=== PATIENT | male | born 1940 | race Hispanic/Latino ===

== ENCOUNTER 2019-08-14 22:21 | Observation (INO) | payer SELFPAY ==
[2019-08-15 00:31] LABS: Hemoglobin 14.2 gm/dl (11.8-15.2); Mean Corpuscular HGB Conc 35 % (32-34); Mean Corpuscular Volume 83 fl (84-94); Platelet Count 204 K/mm3 (140-440); Red Blood Count 4.96 M/mm3 (3.65-5.03)
[2019-08-15 00:56] LABS: BUN/Creatinine Ratio 17; Blood Urea Nitrogen 15 mg/dL (9-20); Calcium 9.1 mg/dL (8.4-10.2); Hemolysis Index 4
--- NOTE | 2019-08-15 04:05 | Emergency Department Report ---
HPI - General Chief Complaint: Extremity Problem,Nontraumatic - HPI HPI: Room 2 The patient is a 71-year-old male presenting with a chief complaint of bilateral foot pain. The patient states she's had pain in bilateral feet for approximately 3 years. The patient states his feet are still hard and swollen which makes him believe they are infected. The patient is a poor historian. Patient states the right foot hurts worse than left. There is no recent trauma. Location: [See above] Duration: [See above] Quality: [See above] Severity: [See above] Timing: [See above] Context: [See above] Modifying factors: [See above] Associated signs and symptoms: [see above] ED Past Medical Hx - Past Medical History Previous Medical History?: Yes Hx Heart Attack/AMI: Yes Hx Diabetes: Yes - Family History Family history: no significant - Social History Smoking Status: Never Smoker Substance Use Type: None ED Review of Systems ROS: Stated complaint: DIABETES FEET SWELLING Other details as noted in HPI Constitutional: denies: fever Physical Exam - Physical Exam Physical Exam: GENERAL: The patient is well-developed well-nourished male lying on stretcher not appearing to be in acute distress. Poor hygiene. Malodorous HEENT: Normocephalic. Atraumatic. Extraocular motions are intact. Patient has moist mucous membranes. NECK: Supple. Trachea midline CHEST/LUNGS: There is no respiratory distress noted. HEART/CARDIOVASCULAR: Regular. There is no tachycardia. There is no gallop rub or murmur. ABDOMEN:There is no abdominal distention. SKIN: Bilateral lower extremities are scabbed over and erythematous. Both legs are extremely malodorous. Ulceration to the left ankle and heel. There were several bills of Money embedded into the skin behind the right calf. This was peeled off and given to the patient NEURO: The patient is awake, alert, and oriented. The patient is cooperative. The patient has normal speech MUSCULOSKELETAL: There is no evidence of acute injury. ED Medical Decision Making - Lab Data Result diagrams: 08/14/19 23:48 08/14/19 23:48 Laboratory Tests 08/14/19 08/14/19 08/14/19 22:47 23:48 23:48 WBC 10.8 RBC 4.96 Hgb 14.2 Hct 41.0 MCV 83 L MCH 29 MCHC 35 H RDW 14.0 Plt Count 204 Sodium 142 Potassium 4.0 Chloride 102.0 Carbon Dioxide 27 Anion Gap 17 BUN 15 Creatinine 0.9 Estimated GFR > 60 BUN/Creatinine Ratio 17 Glucose 203 H POC Glucose 186 H Calcium 9.1 - Differential Diagnosis diabetic foot infection Critical care attestation.: If time is entered above; I have spent that time in minutes in the direct care of this critically ill patient, excluding procedure time. ED Disposition Clinical Impression: Diabetic infection of left foot, Diabetic infection of right foot Disposition: OP ADMIT IP TO THIS HOSP Is pt being admited?: Yes Does the pt Need Aspirin: No Condition: Fair Instructions: Diabetes Mellitus Type 2 in Adults (ED) Time of Disposition: 04:17 (hospitalist paged (Dr Haynes))
[2019-08-15] MEDS ORDERED: VANCOMYCIN/NS 1 GM/250 ML 1 GM/250 ML BAG IV ONE ×3 (04:06→09:00)
[2019-08-15] MEDS ORDERED: CEFEPIME/NS 1 GM/100 ML 1 GM/100 ML BAG IV ONE (04:06)
[2019-08-15] MEDS ORDERED: cloNIDine 0.2 MG TAB PO ONE (04:43)
[2019-08-15] MEDS ORDERED: diphenhydrAMINE 25 MG CAP PO ONE ×2 (04:43→04:45)
[2019-08-15] MEDS ORDERED: FAMOTIDINE 20 MG/2 ML INJ IV ONE ×2 (04:43→04:45)
--- NOTE | 2019-08-15 06:10 | XRay Report ---
EXAMINATION: Bilateral tibia/fibula, 2 views, 08/15/2019 CLINICAL INFORMATION: Diabetic foot infection COMPARISON: None. FINDINGS: There is no evidence of acute bony fracture of either lower extremity. There is diffuse justyna rly symmetric soft tissue swelling throughout both lower extremities. Right lower extremity there is no evidence of acute bony fracture IMPRESSION: Diffuse soft tissue swelling of both lower extremities. Signer Name: Isidra Amador MD Signed: 08/15/2019 6:06 AM Workstation Name: [email or web address]
--- NOTE | 2019-08-15 06:12 | XRay Report ---
EXAMINATION: Bilateral foot radiograph, 2 views, 08/15/2019 CLINICAL INFORMATION: Diabetic foot infection COMPARISON: None. FINDINGS: Evaluation is limited secondary to patient positioning. There is diffuse soft tissue swelling of both feet. Bony degenerative changes of both feet are noted. Bony structures appear subjectively deminera lized. No definite acute fracture or other acute bony abnormality is clearly visualized. Signer Name: Isidra Amador MD Signed: 08/15/2019 6:08 AM Workstation Name: [id number]
--- NOTE | 2019-08-15 07:54 | History and Physical Report ---
History of Present Illness Date of examination: 08/15/19 Date of admission: 08/15/19 Chief complaint: Iker lower extremity swelling, chronic wounds History of present illness: 71-year-old obese male patient with significant past medical history of diabetes mellitus presented to the emergency room. With bilateral lower extremity pain and swelling and foul-smelling discharge. Patient complains of right foot pain, no history suggestive of trauma Patient is noncooperative, refuses to give history and poor historian Initial workup with x-ray bilateral tibia-fibula initial workup with x-ray bilateral tibia-fibula; diffuse soft tissue swelling of both lower extremities no fracture The bilateral feet diffuse soft tissue swelling of both feet with degenerative bone changes and demineralization of bone structures No fracture or acute abnormality Past History Past Medical History: diabetes, hypertension Past Surgical History: No surgical history Social history: denies: smoking, alcohol abuse, prescription drug abuse Family history: hypertension Medications and Allergies Allergies Allergy/AdvReac Type Severity Reaction Status Date / Time No Known Allergies Allergy Verified 08/14/19 22:32 Home Medications Medication Instructions Recorded Confirmed Last Taken Type No Known Home Medications [No 08/15/19 08/15/19 Unknown History Reported Home Medications] Review of Systems Constitutional: no weight loss, no weight gain, no fever, no chills Cardiovascular: no chest pain, no orthopnea, no palpitations Respiratory: no cough, no shortness of breath Gastrointestinal: no abdominal pain, no nausea, no vomiting Genitourinary Male: no dysuria, no hematuria Musculoskeletal: other (cellulitis bilateral lower extremities) Integumentary: dryness, foot/leg ulcers, other (chronic skin changes), no rash, no lesions Neurological: no weakness, no numbness Psychiatric: no anxiety, no depression Endocrine: no cold intolerance, no heat intolerance Hematologic/Lymphatic: no easy bruising, no easy bleeding Allergic/Immunologic: no urticaria, no allergic rhinitis Exam - Constitutional Vitals: Temp Pulse Resp BP Pulse Ox 97.6 F 88 23 187/97 97 08/15/19 04:01 08/15/19 06:15 08/15/19 06:31 08/15/19 06:45 08/15/19 06:45 General appearance: Present: mild distress, well-nourished, obese, malodorous, other (foul-smelling) - EENT Eyes: Present: PERRL, EOM intact - Neck Neck: Present: supple, normal ROM - Respiratory Respiratory effort: normal Respiratory: bilateral: diminished, negative: rales, rhonchi, wheezing - Cardiovascular Rhythm: regular Heart Sounds: Present: S1 & S2 - Extremities Extremities: abnormal (chronic skin changes) Extremity abnormal: edema, ulceration, erythema, other (cellulitis) - Abdominal General gastrointestinal: Present: soft, non-tender, non-distended, normal bowel sounds - Integumentary Integumentary: Present: clear, warm - Musculoskeletal Musculoskeletal: strength equal bilaterally, generalized weakness - Psychiatric Psychiatric: appropriate mood/affect, cooperative, agitated (at times) - Neurologic Neurologic: moves all extremities Results - Labs CBC & Chem 7: 08/14/19 23:48 08/14/19 23:48 Labs: Abnormal lab results 08/14/19 08/14/19 08/14/19 Range/Units 22:47 23:48 23:48 MCV 83 L (84-94) fl MCHC 35 H (32-34) % Glucose 203 H (75-100) mg/dL POC Glucose 186 H (70-105) Assessment and Plan --Hypertensive urgency; managed with antihypertensives When necessary medications --Cellulitis lower extremities/diabetic foot infection; Elevated the limb, wound care, IV antibiotics Cultures, consider surgery/ID consult if needed Lower extremity venous Doppler to rule out DVT --Type 2 diabetes mellitus; Accu-Chek sliding scale coverage ADA diet, longer acting insulin as needed, A1c --Medical noncompliance; Strongly advised to comply with medications diet and follow-up visits --Obesity BMI 38.0 Patient needs weight reduction and medically stable --DVT prophylaxis; Lovenox -Full code Monitor closely and adjust the management as needed Plan of care reviewed with the patient and his nurse
[2019-08-15] MEDS ORDERED: VANCOMYCIN PHARMACY TO DOSE IV SCH (09:00)
[2019-08-15] MEDS ORDERED: METOPROLOL TARTRATE 25 MG TAB ONE (09:18)
[2019-08-15] MEDS ORDERED: LISINOPRIL 20 MG TAB ONE (09:18)
[2019-08-15] MEDS ORDERED: hydroCHLOROthiazide 12.5 MG CAP ONE (09:18)
[2019-08-15] MEDS ORDERED: hydrALAZINE 20 MG/1 ML INJ ONE (09:19)
[2019-08-15] MEDS ORDERED: hydrALAZINE 20 MG/1 ML INJ IV PRN (10:00)
[2019-08-15] MEDS ORDERED: LISINOPRIL 20 MG TAB PO SCH (10:00)
[2019-08-15] MEDS ORDERED: METOPROLOL TARTRATE 25 MG TAB PO SCH (10:00)
[2019-08-15] MEDS ORDERED: hydroCHLOROthiazide 12.5 MG CAP PO SCH (10:00)
[2019-08-15] MEDS ORDERED: HALOPERIDOL LACTATE 5 MG/1 ML INJ IM PRN (13:19)
[2019-08-15] MEDS ORDERED: MORPHINE 2 MG/1 ML INJ IV PRN (13:22)
[2019-08-15] MEDS: INSULIN LISPRO 100 UNIT/ML SUB-Q SCH ×2 (13:24→18:50)
[2019-08-15] MEDS ORDERED: ONDANSETRON 4 MG/2 ML INJ IV PRN (13:24)
[2019-08-15] MEDS ORDERED: hydrALAZINE 25 MG TAB PO SCH (14:00)
[2019-08-15] MEDS ORDERED: PIPERACIL/TAZOBACTA 4.5/NS 100 4.5 GM/100 ML VIAL IV SCH (14:00)
[2019-08-15] MEDS ORDERED: CEFEPIME/NS 2 GM/100 ML 2 GM/100 ML BAG IV SCH (14:00)
[2019-08-15 18:05] VITALS: BP 148/60
--- NOTE | 2019-08-15 21:08 | Discharge Summary ---
Providers - Providers Date of Admission: 08/15/19 05:01 Date of discharge: 08/22/19 Attending physician: HOLLIE BAIG 08/15/19 13:20 Consult to Wound/ET Nurse [CONS] Routine Reason For Exam: wound eval Primary care physician: INPATIENT CARE MANAGER RN Hospitalization Reason for admission: Iker LE swelling/cellulitis Condition: Fair Hospital course: 71-year-old obese male patient with significant past medical history of diabetes mellitus presented to the emergency room. With bilateral lower extremity pain and swelling and foul-smelling discharge. Patient complains of right foot pain, no history suggestive of trauma Patient is noncooperative, refuses to give history and poor historian Initial workup with x-ray bilateral tibia-fibula initial workup with x-ray bilateral tibia-fibula; diffuse soft tissue swelling of both lower extremities no fracture Diagnosis: --Hypertensive urgency; managed with antihypertensives When necessary medications --Cellulitis lower extremities/diabetic foot infection; Elevated the limb, wound care, IV antibiotics Cultures, consider surgery/ID consult if needed Lower extremity venous Doppler to rule out DVT --Type 2 diabetes mellitus; Accu-Chek sliding scale coverage ADA diet, longer acting insulin as needed, A1c --Medical noncompliance; Strongly advised to comply with medications diet and follow-up visits --Obesity BMI 38.0 Patient needs weight reduction and medically stable. Left AMA Disposition: LEFT AGAINST MED ADVICE Time spent for discharge: 30 min Core Measure Documentation - Palliative Care Palliative Care/ Comfort Measures: Not Applicable - Core Measures Any of the following diagnoses?: none Exam - Physical Exam Narrative exam: Left AMA - Constitutional Vitals: Temp Pulse Resp BP Pulse Ox 98.2 F 81 20 148/60 92 08/15/19 17:10 08/15/19 17:10 08/15/19 17:10 08/15/19 17:09 08/15/19 17:10 Plan Additional Instructions: Left AMA Follow up with: PRIMARY CARE, [Primary Care Provider] - 7 Days
[2019-08-15] MEDS ORDERED: FAMOTIDINE 20 MG TAB PO SCH (22:00)
[2019-08-15] MEDS ORDERED: ENOXAPARIN 40 MG/0.4 ML INJ SUB-Q SCH (22:00)
[2019-08-16] MEDS ORDERED: VANCOMYCIN 1,500 MG in SODIUM CHLORIDE 0.9% 500 ML 500 ML IV SCH
== END 2019-08-15 19:40 | disposition left against medical advice (07) ==
LOC: ED 22:21 → 3A 08-15 05:01
PROVIDERS: ADMIT Internal Medicine Geriatric Medicine; ATTEND Internal Medicine
DX: L03.116 Cellulitis of left lower limb (principal); L03.115 Cellulitis of right lower limb; E11.628 Type 2 diabetes mellitus with other skin complications; I16.0 Hypertensive urgency; I10 Essential (primary) hypertension; E66.9 Obesity, unspecified; I25.2 Old myocardial infarction; Z91.14 Patient's other noncompliance with medication regimen; Z79.899 Other long term (current) drug therapy; Z68.38 Body mass index [BMI] 38.0-38.9, adult
CPT/HCPCS: 36415; 73590; 73620; 80048; 82962; 83036; 85027; 87040; 96365; 96366; 96367; 96372; 96375; 99284; G0378; J0360; J0692; J1630; J3370; J1815; J2543; J7040

== ENCOUNTER 2019-08-16 09:01 | Emergency (ER) | payer SELFPAY ==
[2019-08-16 09:30] VITALS: BP 174/69
== END 2019-08-16 15:00 | disposition left against medical advice (07) ==
LOC: ED 09:01
DX: M79.604 Pain in right leg (principal); Z53.21 Procedure and treatment not carried out due to patient leaving prior to being seen by health care provider

== ENCOUNTER 2020-12-13 19:10 | Inpatient (IN) | payer OTHER, MEDICARE ==
[2020-12-13 20:11] LABS: Basophils % (Auto) 0.2 % (0.0-1.8); Eosinophils # (Auto) 0.1 K/mm3 (0.0-0.4); Eosinophils % (Auto) 0.7 % (0.0-4.3); Hematocrit 38.1 % (35.5-45.6); Hemoglobin 12.7 gm/dl (11.8-15.2); Lymphocytes # (Auto) 0.9 K/mm3 (1.2-5.4); Lymphocytes % (Auto) 7.3 % (13.4-35.0); Mean Corpuscular HGB Conc 33 % (32-34); Mean Corpuscular Volume 85 fl (84-94); Monocytes # (Auto) 1.4 K/mm3 (0.0-0.8); Monocytes % (Auto) 11.5 % (0.0-7.3); Platelet Count 187 K/mm3 (140-440); Red Blood Count 4.49 M/mm3 (3.65-5.03); Red Cell Distribution Width 15.9 % (13.2-15.2)
[2020-12-13 20:21] LABS: Alanine Aminotransferase 11 units/L (7-56); Albumin 3.8 g/dL (3.9-5); BUN/Creatinine Ratio 19; Blood Urea Nitrogen 21 mg/dL (9-20); Calcium 8.9 mg/dL (8.4-10.2); Hemolysis Index 5
--- NOTE | 2020-12-14 01:06 | Emergency Department Report ---
HPI - General Chief Complaint: Syncope Time Seen by Provider: 12/14/20 00:36 - HPI HPI: Room 2 The patient is a 80-year-old male present with a chief complaint of syncope. Patient states she has had several syncopal episodes over the past several weeks but has not yet sought medical attention. Patient states 1 week ago while walking down the street he began to feel "swimmy headed" and had palpitations. Patient states he then had a syncopal episode and fell over onto a bench. The patient states he awakened on the bench but did not go to the hospital afterwards. The patient states today he was come to the emergency department because of his frequent syncopal episode while in the waiting room he says he had another episode but he did not inform anyone. When asked how he is feeling currently the patient states he feels tired but has no other complaints. Patient denies chest pains or shortness of breath. Of note the patient has some form of facial cancer states he had surgery recently at the [facility] ED Past Medical Hx - Past Medical History Previous Medical History?: Yes Hx Heart Attack/AMI: Yes Hx Diabetes: Yes Additional medical history: Cancer - Surgical History Past Surgical History?: Yes Hx Coronary Stent: Yes Additional Surgical History: left face, jaw and neck cancer removed - Family History Family history: no significant - Social History Smoking Status: Former Smoker (Cigars) Substance Use Type: None (Denies illicit drug use) - Medications Home Medications: Home Medications Medication Instructions Recorded Confirmed Last Taken Type No Known Home Medications [No 08/15/19 08/15/19 Unknown History Reported Home Medications] ED Review of Systems ROS: Stated complaint: SYNCOPAL Other details as noted in HPI Constitutional: denies: fever Eyes: denies: eye pain ENT: denies: throat pain Respiratory: denies: shortness of breath Cardiovascular: palpitations. denies: chest pain Endocrine: no symptoms reported Gastrointestinal: denies: abdominal pain Genitourinary: denies: dysuria Musculoskeletal: denies: back pain Neurological: denies: headache Physical Exam - Physical Exam Vital Signs: Vital Signs 12/13/20 19:34 Temperature 99.0 F Pulse Rate 80 Respiratory 18 Rate Blood Pressure 143/68 O2 Sat by Pulse 97 Oximetry Physical Exam: GENERAL: The patient is well-developed well-nourished male lying on stretcher not appearing to be in acute distress. [] HEENT: Normocephalic. Atraumatic. Extraocular motions are intact. Patient has moist mucous membranes. Left facial surgical site intact. Erythema surrounding suture line and tasha. No active drainage appreciated NECK: Supple. Trachea midline CHEST/LUNGS: Clear to auscultation. There is no respiratory distress noted. HEART/CARDIOVASCULAR: Regular. There is no tachycardia. There is no gallop rub or murmur. ABDOMEN: Abdomen is soft, nontender. Patient has normal bowel sounds. There is no abdominal distention. SKIN: Left facial surgical site intact. Erythema surrounding suture line and tasha. No active drainage appreciated. There is no diaphoresis. NEURO: The patient is awake, alert, and oriented. The patient is cooperative. The patient has no focal neurologic deficits. The patient has normal speech. Cranial nerves II through XII grossly intact MUSCULOSKELETAL: There is no evidence of acute injury. ED Course Vital Signs 12/13/20 19:34 Temperature 99.0 F Pulse Rate 80 Respiratory 18 Rate Blood Pressure 143/68 O2 Sat by Pulse 97 Oximetry ED Medical Decision Making - Lab Data Result diagrams: 12/13/20 19:49 12/13/20 19:49 Laboratory Tests 12/13/20 12/13/20 19:49 19:49 WBC 11.9 H RBC 4.49 Hgb 12.7 Hct 38.1 MCV 85 MCH 28 MCHC 33 RDW 15.9 H Plt Count 187 Lymph % (Auto) 7.3 L [place] % (Auto) 11.5 H Eos % (Auto) 0.7 Baso % (Auto) 0.2 Lymph # (Auto) 0.9 L [place] # (Auto) 1.4 H Eos # (Auto) 0.1 Baso # (Auto) 0.0 Seg Neutrophils % 80.3 H Seg Neutrophils # 9.5 H Sodium 138 Potassium 4.8 Chloride 100.8 Carbon Dioxide 27 Anion Gap 15 BUN 21 H Creatinine 1.1 Estimated GFR > 60 BUN/Creatinine Ratio 19 Glucose 140 H Calcium 8.9 Total Bilirubin 0.90 AST 21 ALT 11 Alkaline Phosphatase 130 H Troponin T 0.011 Total Protein 6.8 Albumin 3.8 L Albumin/Globulin Ratio 1.3 - EKG Data -: EKG Interpreted by Ca EKG shows normal: sinus rhythm Rate: normal - EKG Data When compared to previous EKG there are: previous EKG unavailable Interpretation: other (No ischemic changes seen) - Radiology Data Radiology results: report reviewed (CT head, CT neck, CT chest), image reviewed (CT head, CT neck, CT chest) [address] [address] Cat Scan Report Signed Patient: KRYSTYNA VERGARA MR#: [id number] : 1940 Acct:[id number] Age/Sex: 80 / M ADM Date: 12/13/20 Loc: ED Attending Dr: Ordering Physician: VA VERGARA MD Date of Service: 12/14/20 Procedure(s): CT head/brain wo con Accession Number(s): [id number] cc: VA VERGARA MD CT head without contrast INDICATION : Syncope. TECHNIQUE: Axial imaging performed from the skull apex through the skull base without the use of contrast. All CT scans at this location are performed using CT dose reduction for ALARA by means of automated exposure control. COMPARISON: None FINDINGS: Parenchyma: Negative for mass, stroke or hemorrhage. Chronic changes of atrophy and small vessels ischemia. Ventricles: Dilatation of the basis of diffuse cerebral atrophy. Bones: No acute osseous abnormality. Sinuses: Sinuses and mastoid air cells are clear. IMPRESSION: Chronic changes of atrophy and small vessel ischemia. Signer Name: Phillip Calles MD Signed: 12/14/2020 1:55 AM Workstation Name: [id number] Transcribed By: ES Dictated By: Phillip Calles MD Electronically Authenticated By: Phillip Calles MD Signed Date/Time: 12/14/20154 DD/ 1 TD/TT: Print Cancel [address] [address] Cat Scan Report Signed Patient: KRYSTYNA VERGARA MR#: [id number] : 1940 Acct:[id number] Age/Sex: 80 / M ADM Date: 12/13/20 Loc: ED Attending Dr: Ordering Physician: VA VERGARA MD Date of Service: 12/14/20 Procedure(s): CT facial bones wo con Accession Number(s): [id number] cc: VA VERGARA MD CT facial bones wo con INDICATION: Syncope, recent left facial surgery. TECHNIQUE: All CT scans at this location are performed using the following dose modulation technique: Automated exposure control. CONTRAST: None. COMPARISON: None available. FINDINGS: Postsurgical changes noted at the left neck where there is soft gas and surgical clips. No bony injury or sinus air-fluid level. Negative for radiopaque foreign body. Atherosclerotic vascular calcification is noted at the carotid arteries. IMPRESSION: 1. Negative for bony injury. 2. Postsurgical changes left neck/face. Signer Name: Phillip Calles MD Signed: 12/14/2020 1:58 AM Workstation Name: [id number] Transcribed By: ES Dictated By: Phillip Calles MD Electronically Authenticated By: Phillip Calles MD Signed Date/Time: 12/14/20157 DD/ 5 TD/TT: Print Cancel [facility] [address] [place] [address] Cat Scan Report Signed Patient: KRYSTYNA VERGARA MR#: [id number] : 1940 Acct:[id number] Age/Sex: 80 / M ADM Date: 12/13/20 Loc: ED Attending Dr: Ordering Physician: VA VERGARA MD Date of Service: 12/14/20 Procedure(s): CT angio chest Accession Number(s): [id number] cc: VA VERGARA MD CTA CHEST WITH CONTRAST INDICATION / CLINICAL INFORMATION: Syncope. TECHNIQUE: Axial CT images were obtained through the chest after injection of Omnipaque 350, 100 cc IV contrast. 3 plane MIP and/or 3D reconstructions were produced. All CT scans at this location are performed using CT dose reduction for ALARA by means of automated exposure control. COMPARISON: None available. FINDINGS: PULMONARY ARTERIES: No pulmonary emboli. THORACIC AORTA: Mild atherosclerotic calcification. HEART: No significant abnormality. CORONARY ARTERY CALCIFICATION: Dense. MEDIASTINUM / COURTNEY: No significant abnormality. PLEURA: No pleural effusion. No pneumothorax. LUNGS: No acute air space or interstitial disease. ADDITIONAL FINDINGS: None. UPPER ABDOMEN: 3 mm nonobstructing stone upper pole right kidney. Moderate atherosclerotic calcification of the aorta and its branches. SKELETAL STRUCTURES: No significant osseous abnormality. IMPRESSION: 1. No CT evidence for pulmonary embolism. 2. Negative for pneumonia. Signer Name: Phillip Calles MD Signed: 12/14/2020 2:03 AM Workstation Name: [id number] Transcribed By: ES Dictated By: Phillip Calles MD Electronically Authenticated By: Phillip Calles MD Signed Date/Time: 12/14/20202 DD/ 7 TD/TT: Print Cancel - Differential Diagnosis Syncope, dysrhythmia, PE, symptomatic anemia, cellulitis Critical care attestation.: If time is entered above; I have spent that time in minutes in the direct care of this critically ill patient, excluding procedure time. ED Disposition Clinical Impression: Syncope Disposition: 09 OP ADMIT IP TO THIS HOSP Is pt being admited?: Yes Does the pt Need Aspirin: Yes Condition: Fair Instructions: Syncope (ED) Referrals: ROBY HARRIS MD [Primary Care Provider] - 3-5 Days Time of Disposition: 02:36 (Hospitalist paged (Dr Haynes))
[2020-12-14] MEDS ORDERED: ceFAZolin/NS 1 GM/50 ML 1 GM/50 ML BAG IV ONE (01:07)
--- NOTE | 2020-12-14 02:00 | Cat Scan Report ---
CT head without contrast INDICATION : Syncope. TECHNIQUE: Axial imaging performed from the skull apex through the skull base without the use of con trast. All CT scans at this location are performed using CT dose reduction for ALARA by means of aut omated exposure control. COMPARISON: None FINDINGS: Parenchyma: Negative for mass, stroke or hemorrhage. Chronic changes of atrophy and small vessels is chemia. Ventricles: Dilatation of the basis of diffuse cerebral atrophy. Bones: No acute osseous abnormality. Sinuses: Sinuses and mastoid air cells are clear. IMPRESSION: Chronic changes of atrophy and small vessel ischemia. Signer Name: Phillip Calles MD Signed: 12/14/2020 1:55 AM Workstation Name: [id number]
--- NOTE | 2020-12-14 02:03 | Cat Scan Report ---
CT facial bones wo con INDICATION: Syncope, recent left facial surgery. TECHNIQUE: All CT scans at this location are performed using the following dose modulation technique: Automated exposure control. CONTRAST: None. COMPARISON: None available. FINDINGS: Postsurgical changes noted at the left neck where there is soft gas and surgical clips. No bony injury or sinus air-fluid level. Negative for radiopaque foreign body. Atherosclerotic vascular calcification is noted at the carotid arteries. IMPRESSION: 1. Negative for bony injury. 2. Postsurgical changes left neck/face. Signer Name: Phillip Calles MD Signed: 12/14/2020 1:58 AM Workstation Name: [id number]
--- NOTE | 2020-12-14 02:08 | Cat Scan Report ---
CTA CHEST WITH CONTRAST INDICATION / CLINICAL INFORMATION: Syncope. TECHNIQUE: Axial CT images were obtained through the chest after injection of Omnipaque 350, 100 cc I V contrast. 3 plane MIP and/or 3D reconstructions were produced. All CT scans at this location are pe rformed using CT dose reduction for ALARA by means of automated exposure control. COMPARISON: None available. FINDINGS: PULMONARY ARTERIES: No pulmonary emboli. THORACIC AORTA: Mild atherosclerotic calcification. HEART: No significant abnormality. CORONARY ARTERY CALCIFICATION: Dense. MEDIASTINUM / COURTNEY: No significant abnormality. PLEURA: No pleural effusion. No pneumothorax. LUNGS: No acute air space or interstitial disease. ADDITIONAL FINDINGS: None. UPPER ABDOMEN: 3 mm nonobstructing stone upper pole right kidney. Moderate atherosclerotic calcificat ion of the aorta and its branches. SKELETAL STRUCTURES: No significant osseous abnormality. IMPRESSION: 1. No CT evidence for pulmonary embolism. 2. Negative for pneumonia. Signer Name: Phillip Calles MD Signed: 12/14/2020 2:03 AM Workstation Name: [id number]
[2020-12-14] MEDS ORDERED: ASPIRIN 325 MG TAB PO ONE (02:36)
[2020-12-14] MEDS ORDERED: MORPHINE 2 MG/1 ML INJ IV PRN (02:43)
[2020-12-14] MEDS ORDERED: MAGNESIUM HYDROXIDE (MOM) ORAL LIQD UDC PO PRN (02:43)
[2020-12-14] MEDS ORDERED: DEXTROSE 50% IN WATER (25GM) 50 ML SYRINGE IV PRN (02:43)
[2020-12-14] MEDS ORDERED: ACETAMINOPHEN 325 MG TAB PO PRN (02:43)
[2020-12-14] MEDS ORDERED: ONDANSETRON 4 MG/2 ML INJ IV PRN (02:43)
--- NOTE | 2020-12-14 03:01 | History and Physical Report ---
History of Present Illness Date of examination: 12/14/20 Date of admission: 12/14/2020 Chief complaint: Syncope History of present illness: 80-year-old male with known history of diabetes mellitus, history of [place] in the past with stent placement presenting in the emergency room today with complaint of multiple syncopal episodes. Initial episode was about a week ago when he was working down the street and was lightheaded and was having palpitations. He subsequently had a syncopal episode. He did not seek any medical attention at that time. He however has been having multiple syncopal episodes since then and also had one upon arrival in the emergency room. He denies any chest pain or shortness of breath, no headache, no fever or chills, no nausea or vomiting, no abdominal pain, denies any history of seizures. Patient has had surgery for [facility] cancer at the [facility] in [facility] past. Work-up in the emergency room today, patient had a leukocytosis of 11.9. CT an giogram of the chest was negative, CT of the head shows chronic changes of atrophy and small vessel ischemia. CT of the face/neck was also negative Past History Past Medical History: diabetes, hypertension, other (Cancer Head and Neck) Past Surgical History: PTCA Social history: smoking (Former Smoker) Family history: no significant family history Medications and Allergies Allergies Allergy/AdvReac Type Severity Reaction Status Date / Time No Known Allergies Allergy Verified 08/14/19 22:32 Home Medications Medication Instructions Recorded Confirmed Last Taken Type No Known Home Medications [No 08/15/19 08/15/19 Unknown History Reported Home Medications] Active Meds: Active Medications Acetaminophen (Acetaminophen 325 Mg Tab) 650 mg PO Q4H PRN PRN Reason: Pain MILD(1-3)/Fever >100.5/SHEN Dextrose (Dextrose 50% In Water (25gm) 50 Ml Syringe) 50 ml IV Q30MIN PRN; Protocol PRN Reason: Hypoglycemia Dextrose (Dextrose 50% In Water (25gm) 50 Ml Syringe) 50 ml IV Q30MIN PRN; Protocol PRN Reason: Hypoglycemia Heparin Sodium (Porcine) (Heparin 5,000 Unit/1 Ml Vial) 5,000 unit SUB-Q Q8HR JUAN F Insulin Human Lispro (Insulin Lispro 100 Unit/Ml) 0 unit SUB-Q ACHS JUAN F; Protocol Insulin Human Regular (Insulin Regular, Human 100 Units/1 Ml) 0 units SUB-Q ACHS JUAN F; Protocol Magnesium Hydroxide (Magnesium Hydroxide (Mom) Oral Liqd Udc) 30 ml PO Q4H PRN PRN Reason: Constipation Morphine Sulfate (Morphine 2 Mg/1 Ml Inj) 2 mg IV Q4H PRN PRN Reason: Pain, Moderate (4-6) Ondansetron HCl (Ondansetron 4 Mg/2 Ml Inj) 4 mg IV Q8H PRN PRN Reason: Nausea And Vomiting Sodium Chloride (Sodium Chloride 0.9% 10 Ml Flush Syringe) 10 ml IV BID JUAN F Sodium Chloride (Sodium Chloride 0.9% 10 Ml Flush Syringe) 10 ml IV PRN PRN PRN Reason: LINE FLUSH Review of Systems Constitutional: no fever, no chills Ears, nose, mouth and throat: no nasal congestion, no sore throat Cardiovascular: no chest pain, no palpitations Respiratory: no cough, no shortness of breath Gastrointestinal: no abdominal pain, no nausea, no vomiting, no diarrhea Genitourinary Male: no dysuria, no hematuria, no nocturia Musculoskeletal: no neck pain, no low back pain Integumentary: no rash, no pruritis Neurological: no headaches, no change in speech Psychiatric: no anxiety, no depression Endocrine: no polyphagia, no polydipsia, no polyuria, no nocturia Exam - Constitutional Vitals: Temp Pulse Resp BP Pulse Ox 99.0 F 80 18 143/68 97 12/13/20 19:34 12/13/20 19:34 12/13/20 19:34 12/13/20 19:34 12/13/20 19:34 General appearance: Present: no acute distress, well-nourished - EENT Eyes: Present: PERRL, EOM intact ENT: hearing intact, clear oral mucosa, dentition normal - Neck Neck: Present: supple, normal ROM - Respiratory Respiratory effort: normal Respiratory: bilateral: CTA - Cardiovascular Rhythm: regular Heart Sounds: Present: S1 & S2. Absent: gallop, systolic murmur, diastolic murmur, rub, click - Extremities Extremities: no ischemia, pulses intact, pulses symmetrical, No edema, normal temperature, normal color, Full ROM Peripheral Pulses: within normal limits - Abdominal General gastrointestinal: Present: soft, non-tender, non-distended, normal bowel sounds. Absent: mass - Integumentary Integumentary: Present: clear, warm, dry, normal turgor. Absent: rash - Musculoskeletal Musculoskeletal: strength equal bilaterally - Psychiatric Psychiatric: appropriate mood/affect, intact judgment & insight, memory intact, cooperative - Neurologic Neurologic: CNII-XII intact, no focal deficits, moves all extremities HEART Score - HEART Score Troponin: Troponin T 0.011 ng/mL (0.00-0.029) 12/13/20 19:49 Results - Labs CBC & Chem 7: 12/13/20 19:49 12/13/20 19:49 Labs: Abnormal lab results 12/13/20 12/13/20 Range/Units 19:49 19:49 WBC 11.9 H (4.5-11.0) K/mm3 RDW 15.9 H (13.2-15.2) % Lymph % (Auto) 7.3 L (13.4-35.0) % [place] % (Auto) 11.5 H (0.0-7.3) % Lymph # (Auto) 0.9 L (1.2-5.4) K/mm3 [place] # (Auto) 1.4 H (0.0-0.8) K/mm3 Seg Neutrophils % 80.3 H (40.0-70.0) % Seg Neutrophils # 9.5 H (1.8-7.7) K/mm3 BUN 21 H (9-20) mg/dL Glucose 140 H (75-100) mg/dL Alkaline Phosphatase 130 H (35-129) units/L Albumin 3.8 L (3.9-5) g/dL Assessment and Plan - Patient Problems (1) Syncope Current Visit: Yes Status: Acute Plan to address problem: Etiology unclear. Work-up so far has been negative. Patient will be scheduled for echocardiogram and carotid Doppler. (2) Hypertension Current Visit: Yes Status: Acute Plan to address problem: We will resume routine home medications and monitor vital signs closely. (3) Diabetes mellitus Current Visit: Yes Status: Acute Plan to address problem: We will monitor Accu-Cheks closely. Patient placed on sliding scale insulin. (4) Leukocytosis Current Visit: Yes Status: Acute Plan to address problem: Unclear etiology. No obvious source of infection. We will check urinalysis. Monitor CBC. (5) DVT prophylaxis Current Visit: Yes Status: Acute Plan to address problem: Patient placed on subcutaneous heparin. (6) Full code status Current Visit: Yes Status: Acute Plan to address problem: Patient is full code.
[2020-12-14] MEDS: HEPARIN 5,000 UNIT/1 ML VIAL SUB-Q SCH ×2 (05:34→13:11)
[2020-12-14] MEDS ORDERED: INSULIN LISPRO 100 UNIT/ML SUB-Q SCH (07:30)
[2020-12-14] MEDS: INSULIN REGULAR, HUMAN 100 UNITS/1 ML SUB-Q SCH ×4 (08:53→21:49)
--- NOTE | 2020-12-14 10:20 | Event Note ---
Date: 12/14/20 Patient seen and examined This is the second IMS visit of the day Patient is resting with eyes closed but answers questions appropriately with eye s closed He is oriented to his name and age He offers no specific complaints and denies any chest pain or shortness of breath CT angiogram of the chest and CT of the head and face results reviewed Lab results reviewed Extremities show distal erythema but no evidence of any infection and this appears chronic We will request cardiology consult for the syncopal episode
[2020-12-14] MEDS ORDERED: GLIMEPIRIDE 2 MG TAB PO SCH (11:00)
--- NOTE | 2020-12-14 12:01 | Consultation ---
History of Present Illness Consult date: 12/14/20 Consult reason: syncope History of present illness: The patient is a 72-year-old man admitted to the hospital with syncope. Syncopa l episode is poorly characterized, but the patient denies any prodrome, denies palpitations, chest pain or shortness of breath. His current clinical presentation is also notable for recent extensive surgery in the left side of the face for an undisclosed cancer, surgery was done 2 to 3 days ago at the [facility]. He states he has a history of chronic intermittent syncope which occurs usually every 6 months, has been worked up by his doctors at the [place], but he states no specific etiology has been determined. He has a history of coronary artery disease and states that he underwent coronary stent placement 2 years ago at the [facility]. Before his current surgery, he states that he had preoperative cardiac evaluation including a pharmacologic stress test and possibly an echocardiogram. At this time he is awake and alert, comfortable in no acute distress. EKG is normal sinus rhythm, left ventricular hypertrophy with mild QRS widening. No acute ST or T wave changes. Past History Past Medical History: diabetes, hypertension, other (Cancer Head and Neck) Past Surgical History: PTCA Social history: smoking (Former Smoker) Family history: no significant family history Medications and Allergies Allergies Allergy/AdvReac Type Severity Reaction Status Date / Time No Known Allergies Allergy Verified 08/14/19 22:32 Home Medications Medication Instructions Recorded Confirmed Last Taken Type No Known Home Medications [No 08/15/19 08/15/19 Unknown History Reported Home Medications] Active Meds: Active Medications Acetaminophen (Acetaminophen 325 Mg Tab) 650 mg PO Q4H PRN PRN Reason: Pain MILD(1-3)/Fever >100.5/SHEN Dextrose (Dextrose 50% In Water (25gm) 50 Ml Syringe) 50 ml IV Q30MIN PRN; Protocol PRN Reason: Hypoglycemia Heparin Sodium (Porcine) (Heparin 5,000 Unit/1 Ml Vial) 5,000 unit SUB-Q Q8HR JUAN F Last Admin: 12/14/20 05:34 Dose: Not Given Documented by: Insulin Human Regular (Insulin Regular, Human 100 Units/1 Ml) 0 units SUB-Q ACHS JUAN F; Protocol Last Admin: 12/14/20 08:53 Dose: Not Given Documented by: Magnesium Hydroxide (Magnesium Hydroxide (Mom) Oral Liqd Udc) 30 ml PO Q4H PRN PRN Reason: Constipation Morphine Sulfate (Morphine 2 Mg/1 Ml Inj) 2 mg IV Q4H PRN PRN Reason: Pain, Moderate (4-6) Ondansetron HCl (Ondansetron 4 Mg/2 Ml Inj) 4 mg IV Q8H PRN PRN Reason: Nausea And Vomiting Sodium Chloride (Sodium Chloride 0.9% 10 Ml Flush Syringe) 10 ml IV BID JUAN F Sodium Chloride (Sodium Chloride 0.9% 10 Ml Flush Syringe) 10 ml IV PRN PRN PRN Reason: LINE FLUSH Review of Systems Cardiovascular: syncope, no chest pain, no orthopnea, no palpitations, no rapid/irregular heart beat, no edema, no lightheadedness, no shortness of breath Physical Examination Vital Signs Temp Pulse Resp BP Pulse Ox 99.0 F 80 18 143/68 97 12/13/20 19:34 12/13/20 19:34 12/13/20 19:34 12/13/20 19:34 12/13/20 19:34 General appearance: no acute distress HEENT: Positive: PERRL, Other (Extensive surgical sutures left side of face) Neck: Positive: neck supple Cardiac: Positive: Reg Rate and Rhythm Lungs: Positive: Decreased Breath Sounds Neuro: Positive: Grossly Intact Abdomen: Positive: Soft Male genitourinary: Positive: deferred Skin: Positive: Clear Extremities: Absent: edema Results 12/13/20 19:49 12/13/20 19:49 Cardiac Enzymes 12/13/20 Range/Units 19:49 AST 21 (5-40) units/L CBC 12/13/20 Range/Units 19:49 WBC 11.9 H (4.5-11.0) K/mm3 RBC 4.49 (3.65-5.03) M/mm3 Hgb 12.7 (11.8-15.2) gm/dl Hct 38.1 (35.5-45.6) % Plt Count 187 (140-440) K/mm3 Lymph # (Auto) 0.9 L (1.2-5.4) K/mm3 [place] # (Auto) 1.4 H (0.0-0.8) K/mm3 Eos # (Auto) 0.1 (0.0-0.4) K/mm3 Baso # (Auto) 0.0 (0.0-0.1) K/mm3 Comprehensive Metabolic Panel 12/13/20 Range/Units 19:49 Sodium 138 (137-145) mmol/L Potassium 4.8 (3.6-5.0) mmol/L Chloride 100.8 (98-107) mmol/L Carbon Dioxide 27 (22-30) mmol/L BUN 21 H (9-20) mg/dL Creatinine 1.1 (0.8-1.3) mg/dL Glucose 140 H (75-100) mg/dL Calcium 8.9 (8.4-10.2) mg/dL AST 21 (5-40) units/L ALT 11 (7-56) units/L Alkaline Phosphatase 130 H (35-129) units/L Total Protein 6.8 (6.3-8.2) g/dL Albumin 3.8 L (3.9-5) g/dL EKG interpretations - Telemetry EKG Rhythm: Sinus Rhythm Assessment and Plan - Patient Problems (1) Syncope Current Visit: Yes Status: Acute Plan to address problem: Patient presents with syncope 2 days following extensive surgery for head and neck cancer. Possibly vasovagal syncope especially given the history of multiple prior episodes. We will order an echocardiogram for left ventricular function assessment and continue telemetry monitoring.
[2020-12-15] MEDS: HEPARIN 5,000 UNIT/1 ML VIAL SUB-Q SCH ×3 (05:10→21:36)
[2020-12-15 06:48] LABS: Basophils % (Auto) 0.7 % (0.0-1.8); Eosinophils # (Auto) 0.2 K/mm3 (0.0-0.4); Eosinophils % (Auto) 2.7 % (0.0-4.3); Hematocrit 34.9 % (35.5-45.6); Hemoglobin 11.8 gm/dl (11.8-15.2); Lymphocytes # (Auto) 1.6 K/mm3 (1.2-5.4); Lymphocytes % (Auto) 21.2 % (13.4-35.0); Mean Corpuscular HGB Conc 34 % (32-34); Mean Corpuscular Volume 85 fl (84-94); Monocytes # (Auto) 0.9 K/mm3 (0.0-0.8); Monocytes % (Auto) 12.6 % (0.0-7.3); Platelet Count 173 K/mm3 (140-440); Red Blood Count 4.13 M/mm3 (3.65-5.03); Red Cell Distribution Width 15.9 % (13.2-15.2)
[2020-12-15 06:59] LABS: INR 1.13 (0.87-1.13)
[2020-12-15 07:43] LABS: BUN/Creatinine Ratio 20; Blood Urea Nitrogen 20 mg/dL (9-20); Calcium 8.3 mg/dL (8.4-10.2); Hemolysis Index 1
[2020-12-15] MEDS: INSULIN REGULAR, HUMAN 100 UNITS/1 ML SUB-Q SCH ×3 (09:43→16:55)
--- NOTE | 2020-12-15 13:14 | Progress Note ---
Subjective Date of service: 12/15/20 Interval history: 80-year-old male with known history of diabetes mellitus, history of [place] in the past with stent placement presenting in the emergency room today with complaint of multiple syncopal episodes. Initial episode was about a week ago when he was working down the street and was lightheaded and was having palpitations. He subsequently had a syncopal episode. He did not seek any medical attention at that time. He however has been having multiple syncopal episodes since then and also had one upon arrival in the emergency room. He denies any chest pain or shortness of breath, no headache, no fever or chills, no nausea or vomiting, no abdominal pain, denies any history of seizures. [facility] Work-up in the emergency room today, patient had a leukocytosis of 11.9. CT angiogram of the chest was negative, CT of the head shows chronic changes of atrophy and small vessel ischemia. CT of the face/neck was also negative 12/15 patient is resting with eyes closed. oriented x 3. cardiology note reviewed. Discussed with RN . He was complaining of dizzy during orthostatic measurements. will request PT eval. possible discharge tomorrow A/P: Syncope - likely vasovagal cardiology note reviewed ECHO normal per discussion with Dr. Cameron Orthostatic vitals are fair will request PT to assess his physical status as he felt dizzy while checking orthostatics. Gait was not tested telemetry possible discharge tomorrow HTN: Fair Type 2 Diabetes cont. ISS coverage Recent extensive head and neck surgery for unknown cancer Obesity class 1 Objective - Constitutional Vitals: Vital Signs - 12hr 12/15/20 12/15/20 12/15/20 04:38 07:30 10:00 Temperature 98.7 F 98.4 F Pulse Rate 75 73 Pulse Rate [ 72 Left Radial] Pulse Rate [ 72 Right Radial] Respiratory 20 19 19 Rate Blood Pressure 154/60 Blood Pressure 147/61 [Left] O2 Sat by Pulse 96 Oximetry General appearance: Present: no acute distress, well-nourished - EENT Eyes: PERRL, EOM intact ENT: hearing intact - Neck Neck: supple, normal ROM, other (multiplr tasha in the left side of the neck and healing surgical incision on the left side of the face), no masses or JVD - Respiratory Respiratory effort: normal Respiratory: bilateral: CTA - Cardiovascular Rhythm: regular Heart Sounds: Present: S1 & S2 Extremities: No edema - Gastrointestinal General gastrointestinal: Present: soft, non-tender Rectal Exam: deferred - Genitourinary Male genitourinary: deferred - Neurologic Neurologic: no focal deficits, moves all extremities - Psychiatric Psychiatric: appropriate mood/affect - Labs CBC & Chem 7: 12/15/20 04:51 12/15/20 04:51 Labs: Abnormal lab results 12/14/20 12/14/20 12/14/20 Range/Units 11:14 16:28 21:29 Hct (35.5-45.6) % RDW (13.2-15.2) % [place] % (Auto) (0.0-7.3) % [place] # (Auto) (0.0-0.8) K/mm3 POC Glucose 152 H 140 H 168 H (70-105) mg/dL Calcium (8.4-10.2) mg/dL 12/15/20 12/15/20 Range/Units 04:51 04:51 Hct 34.9 L (35.5-45.6) % RDW 15.9 H (13.2-15.2) % [place] % (Auto) 12.6 H (0.0-7.3) % [place] # (Auto) 0.9 H (0.0-0.8) K/mm3 POC Glucose (70-105) mg/dL Calcium 8.3 L (8.4-10.2) mg/dL HEART Score - HEART Score Troponin: Troponin T 0.011 ng/mL (0.00-0.029) 12/13/20 19:49
--- NOTE | 2020-12-15 13:14 | Discharge Summary ---
Providers - Providers Date of Admission: 12/14/20 02:38 Date of discharge: 12/15/20 Attending physician: FRANSISCO JEAN 12/14/20 02:43 Consult to Dietitian/Nutrition [CONS] Routine Physician Instructions: Reason For Exam: Reason for Consult: Diet education 12/14/20 10:17 Consult to Physician [CONS] Routine Comment: Consulting Provider: RADHA ASHER Physician Instructions: Reason For Exam: syncope 12/14/20 19:05 Consult to Wound/ET Nurse [CONS] Routine Reason For Exam: wound eval Primary care physician: [place] MD LISBETH Hospitalization Condition: Fair Hospital course: 80-year-old male with known history of diabetes mellitus, history of [place] in the past with stent placement presenting in the emergency room today with complaint of multiple syncopal episodes. Initial episode was about a week ago when he was working down the street and was lightheaded and was having palpitations. He subsequently had a syncopal episode. He did not seek any medical attention at that time. He however has been having multiple syncopal episodes since then and also had one upon arrival in the emergency room. He denies any chest pain or shortness of breath, no headache, no fever or chills, no nausea or vomiting, no abdominal pain, denies any history of seizures. [facility] Work-up in the emergency room today, patient had a leukocytosis of 11.9. CT angiogram of the chest was negative, CT of the head shows chronic changes of atrophy and small vessel ischemia. CT of the face/neck was also negative 12/15 patient is resting with eyes closed but responds well and is oriented x 3, no complaints, denies CP or sob cardiology note reviewed. Discussed with Dr. Asher. ECHO pending Final Discharge Diagnosis (Prints w/discharge instructions): syncope Time spent for discharge: 32 min Exam - Constitutional Vitals: Temp Pulse Resp BP Pulse Ox 98.4 F 72 19 147/61 96 12/15/20 07:30 12/15/20 10:00 12/15/20 10:00 12/15/20 07:30 12/15/20 04:38 Plan Follow up with: ROBY HARRIS MD [Primary Care Provider] - 3-5 Days
--- NOTE | 2020-12-15 14:01 | Progress Note ---
Assessment and Plan - Patient Problems (1) Syncope Current Visit: Yes Status: Acute Plan to address problem: Patient presents with syncope 2 days following extensive surgery for head and neck cancer. Possibly vasovagal syncope especially given the history of mult iple prior episodes. Echocardiogram shows normal left ventricular systolic function, telemetry in the hospital reports no further significant dysrhythmias. Patient is stable for cardiac discharge, recommend outpatient event monitoring as indicated. Subjective Date of service: 12/15/20 Interval history: Patient is comfortable, no further complaints of chest pain, dizziness, palpitations or feeling faint. Echocardiogram shows normal left ventricular systolic function. Objective Vital Signs Temp Pulse Pulse Pulse Resp BP BP 12/15/20 10:00 72 72 19 12/15/20 07:30 98.4 F 73 19 147/61 12/15/20 04:38 98.7 F 75 20 154/60 12/15/20 00:00 68 12/14/20 23:45 98.4 F 65 20 133/48 12/14/20 20:27 98.4 F 70 20 143/62 12/14/20 16:28 97.3 F L 73 20 142/69 Pulse Ox 12/15/20 10:00 12/15/20 07:30 12/15/20 04:38 96 12/15/20 00:00 12/14/20 23:45 97 12/14/20 20:27 94 12/14/20 16:28 97 - Physical Examination General: No Apparent Distress HEENT: Positive: PERRL, Other (Extensive surgical sutures left side of face) Neck: Positive: neck supple Cardiac: Positive: Reg Rate and Rhythm Lungs: Positive: Decreased Breath Sounds Neuro: Positive: Grossly Intact Abdomen: Positive: Soft Skin: Positive: Clear Extremities: Absent: edema - Labs and Meds Coagulation 12/15/20 Range/Units 04:51 PT 14.3 (12.2-14.9) Sec. INR 1.13 (0.87-1.13) CBC 12/15/20 Range/Units 04:51 WBC 7.5 (4.5-11.0) K/mm3 RBC 4.13 (3.65-5.03) M/mm3 Hgb 11.8 (11.8-15.2) gm/dl Hct 34.9 L (35.5-45.6) % Plt Count 173 (140-440) K/mm3 Lymph # (Auto) 1.6 (1.2-5.4) K/mm3 [place] # (Auto) 0.9 H (0.0-0.8) K/mm3 Eos # (Auto) 0.2 (0.0-0.4) K/mm3 Baso # (Auto) 0.0 (0.0-0.1) K/mm3 Comprehensive Metabolic Panel 12/15/20 Range/Units 04:51 Sodium 140 (137-145) mmol/L Potassium 3.8 D (3.6-5.0) mmol/L Chloride 104.8 (98-107) mmol/L Carbon Dioxide 26 (22-30) mmol/L BUN 20 (9-20) mg/dL Creatinine 1.0 (0.8-1.3) mg/dL Glucose 78 (75-100) mg/dL Calcium 8.3 L (8.4-10.2) mg/dL
[2020-12-15] MEDS ORDERED: MECLIZINE 12.5 MG TAB PO PRN (14:26)
[2020-12-16] MEDS ORDERED: hydrALAZINE 20 MG/1 ML INJ IV ONE (05:02)
[2020-12-16] MEDS: INSULIN REGULAR, HUMAN 100 UNITS/1 ML SUB-Q SCH ×5 (05:41→22:36)
[2020-12-16] MEDS: hydrALAZINE 20 MG/1 ML INJ IV SCH ×4 (06:14→17:15)
[2020-12-16] MEDS: HEPARIN 5,000 UNIT/1 ML VIAL SUB-Q SCH ×3 (06:15→22:25)
--- NOTE | 2020-12-16 10:18 | Progress Note ---
Assessment and Plan - Patient Problems (1) Syncope Current Visit: Yes Status: Acute Plan to address problem: Patient presented with transient syncope, 2 days following neck and head surgery. Probably vasodepressive reaction. Inpatient cardiac work-up so far negative. CTA of the chest was negative for pulmonary embolism. As outpatient, we will recommend 30-day event monitor. Subjective Date of service: 12/16/20 Interval history: Patient was not able to be discharged yesterday because of unsteadiness of gait. He has been ordered physical therapy prior to eventual discharge. There are no new cardiac complaints. On traffic monitor specialist he has a stable sinus rhythm, no significant dysrhythmias reported. Objective Vital Signs Temp Pulse Pulse Pulse Resp BP BP 12/16/20 09:43 82 174/73 12/16/20 08:24 98.8 F 77 18 174/73 12/16/20 05:36 74 190/80 12/16/20 03:42 98.3 F 74 16 190/80 12/16/20 00:00 12/15/20 23:52 98.5 F 65 18 12/15/20 22:00 65 72 72 19 12/15/20 19:57 98.2 F 69 18 139/49 12/15/20 17:25 98.0 F 69 19 136/63 12/15/20 17:21 69 135/63 12/15/20 13:54 72 144/61 12/15/20 12:36 98.6 F 73 20 125/59 12/15/20 12:00 68 BP Pulse Ox 12/16/20 09:43 12/16/20 08:24 98 12/16/20 05:36 12/16/20 03:42 98 12/16/20 00:00 163/72 12/15/20 23:52 97 12/15/20 22:00 12/15/20 19:57 96 12/15/20 17:25 12/15/20 17:21 96 12/15/20 13:54 100 12/15/20 12:36 96 12/15/20 12:00 - Physical Examination General: No Apparent Distress HEENT: Positive: PERRL, Other (Extensive surgical sutures left side of face) Neck: Positive: neck supple Cardiac: Positive: Reg Rate and Rhythm Lungs: Positive: Decreased Breath Sounds Neuro: Positive: Grossly Intact Abdomen: Positive: Soft Skin: Positive: Clear Extremities: Absent: edema
--- NOTE | 2020-12-16 11:11 | Progress Note ---
Assessment and Plan Assessment and plan: #Syncope - likely vasovagal Cardiology note reviewed Echocardiogram - normal EF Plan for 30 days event monitor Orthostatic vitals are fair PT pending HTN: Fair Type 2 Diabetes cont. ISS coverage Recent extensive head and neck surgery for unknown cancer Follow up with surgery, oncology after discharge Obesity class 1 Diet and exercise advised. DVT - heparin Disposition - Pending PT. He will need to follow up with cardiology for 30 day event monitor History Interval history: 80-year-old male with known history of diabetes mellitus, history of [place] in the past with stent placement presenting in the emergency room today with complaint of multiple syncopal episodes. Initial episode was about a week ago when he was working down the street and was lightheaded and was having palpitations. He subsequently had a syncopal episode. He did not seek any medical attention at that time. He however has been having multiple syncopal episodes since then and also had one upon arrival in the emergency room. He denies any chest pain or shortness of breath, no headache, no fever or chills, no nausea or vomiting, no abdominal pain, denies any history of seizures. 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 Work-up in the emergency room today, patient had a leukocytosis of 11.9. CT angiogram of the chest was negative, CT of the head shows chronic changes of atrophy and small vessel ischemia. CT of the face/neck was also negative 12/15 patient is resting with eyes closed. oriented x 3. cardiology note reviewed. Discussed with RN . He was complaining of dizzy during orthostatic measurements. will request PT eval. possible discharge tomorrow 12/16. Patient still complains of dizziness. PT has been ordered. He has a history of head and neck cancer status post surgery. Hospitalist Physical - Physical exam Narrative exam: VITAL SIGNS: Reviewed. GENERAL: Awake HEAD: No signs of head trauma. EYES: Pupils are equal. Extraocular motions intact. MOUTH: Oropharynx is normal. NECK: No adenopathy, no JVD. Surgical tasha on the left neck CHEST: Chest with diminished breath sounds bilaterally. No wheezes, rales, or rhonchi. CARDIAC: normal S1 and S2, without murmurs, gallops, or rubs. ABDOMEN: Soft, non tender and non distended. No rebound or guarding, and no masses palpated. Bowel Sounds normal. MUSCULOSKELETAL: No edema NEUROLOGIC EXAM: Alert and oriented x3. No focal neurologic deficits SKIN: No obvious lesions - Constitutional Vitals: Temp Pulse Resp BP Pulse Ox 98.8 F 82 18 174/73 98 12/16/20 08:24 12/16/20 09:43 12/16/20 08:24 12/16/20 09:43 12/16/20 08:24 HEART Score - HEART Score Troponin: Troponin T 0.011 ng/mL (0.00-0.029) 12/13/20 19:49 Results - Labs CBC & Chem 7: 12/15/20 04:51 12/15/20 04:51 Labs: Laboratory Last Values WBC 7.5 K/mm3 (4.5-11.0) 12/15/20 04:51 RBC 4.13 M/mm3 (3.65-5.03) 12/15/20 04:51 Hgb 11.8 gm/dl (11.8-15.2) 12/15/20 04:51 Hct 34.9 % (35.5-45.6) L 12/15/20 04:51 MCV 85 fl (84-94) 12/15/20 04:51 MCH 29 pg (28-32) 12/15/20 04:51 MCHC 34 % (32-34) 12/15/20 04:51 RDW 15.9 % (13.2-15.2) H 12/15/20 04:51 Plt Count 173 K/mm3 (140-440) 12/15/20 04:51 Lymph % (Auto) 21.2 % (13.4-35.0) 12/15/20 04:51 [place] % (Auto) 12.6 % (0.0-7.3) H 12/15/20 04:51 Eos % (Auto) 2.7 % (0.0-4.3) 12/15/20 04:51 Baso % (Auto) 0.7 % (0.0-1.8) 12/15/20 04:51 Lymph # (Auto) 1.6 K/mm3 (1.2-5.4) 12/15/20 04:51 [place] # (Auto) 0.9 K/mm3 (0.0-0.8) H 12/15/20 04:51 Eos # (Auto) 0.2 K/mm3 (0.0-0.4) 12/15/20 04:51 Baso # (Auto) 0.0 K/mm3 (0.0-0.1) 12/15/20 04:51 Seg Neutrophils % 62.8 % (40.0-70.0) 12/15/20 04:51 Seg Neutrophils # 4.7 K/mm3 (1.8-7.7) 12/15/20 04:51 PT 14.3 Sec. (12.2-14.9) 12/15/20 04:51 INR 1.13 (0.87-1.13) 12/15/20 04:51 Sodium 140 mmol/L (137-145) 12/15/20 04:51 Potassium 3.8 mmol/L (3.6-5.0) D 12/15/20 04:51 Chloride 104.8 mmol/L (98-107) 12/15/20 04:51 Carbon Dioxide 26 mmol/L (22-30) 12/15/20 04:51 Anion Gap 13 mmol/L 12/15/20 04:51 BUN 20 mg/dL (9-20) 12/15/20 04:51 Creatinine 1.0 mg/dL (0.8-1.3) 12/15/20 04:51 Estimated GFR > 60 ml/min 12/15/20 04:51 BUN/Creatinine Ratio 20 % 12/15/20 04:51 Glucose 78 mg/dL (75-100) 12/15/20 04:51 POC Glucose 156 mg/dL (70-105) H 12/15/20 21:33 Calcium 8.3 mg/dL (8.4-10.2) L 12/15/20 04:51 Total Bilirubin 0.90 mg/dL (0.1-1.2) 12/13/20 19:49 AST 21 units/L (5-40) 12/13/20 19:49 ALT 11 units/L (7-56) 12/13/20 19:49 Alkaline Phosphatase 130 units/L (35-129) H 12/13/20 19:49 Troponin T 0.011 ng/mL (0.00-0.029) 12/13/20 19:49 Total Protein 6.8 g/dL (6.3-8.2) 12/13/20 19:49 Albumin 3.8 g/dL (3.9-5) L 12/13/20 19:49 Albumin/Globulin Ratio 1.3 % 12/13/20 19:49 Microbiology: Microbiology 12/14/20 01:47 Peripheral/Venous Blood Culture - Preliminary NO GROWTH AFTER 24 HOURS 12/14/20 01:16 Peripheral/Venous Blood Culture - Preliminary NO GROWTH AFTER 24 HOURS Rudolph/IV: Voiding Method Urinal Active Medications - Current Medications Current Medications: Generic Name Dose Route Start Last Admin Trade Name Freq PRN Reason Stop Dose Admin Acetaminophen 650 mg 12/14/20 02:43 Acetaminophen 325 Mg Tab PO Q4H PRN Pain MILD(1-3)/Fever >100.5/SHEN Dextrose 50 ml 12/14/20 02:43 Dextrose 50% In Water (25gm) 50 Ml Syringe IV Q30MIN PRN Hypoglycemia Protocol Heparin Sodium (Porcine) 5,000 unit 12/14/20 06:00 12/16/20 06:15 Heparin 5,000 Unit/1 Ml Vial SUB-Q 5,000 unit Q8HR JUAN F Administration Hydralazine HCl 20 mg 12/16/20 06:00 12/16/20 09:43 Hydralazine 20 Mg/1 Ml Inj IV 20 mg Q4HR JUAN F Administration Insulin Human Regular 0 units 12/14/20 07:30 12/16/20 07:30 Insulin Regular, Human 100 Units/1 Ml SUB-Q Not Given ACHS JUAN F Protocol Magnesium Hydroxide 30 ml 12/14/20 02:43 Magnesium Hydroxide (Mom) Oral Liqd Udc PO Q4H PRN Constipation Meclizine HCl 12.5 mg 12/15/20 14:26 Meclizine 12.5 Mg Tab PO Q8H PRN Vertigo Morphine Sulfate 2 mg 12/14/20 02:43 Morphine 2 Mg/1 Ml Inj IV Q4H PRN Pain, Moderate (4-6) Ondansetron HCl 4 mg 12/14/20 02:43 Ondansetron 4 Mg/2 Ml Inj IV Q8H PRN Nausea And Vomiting Sodium Chloride 10 ml 12/14/20 10:00 12/15/20 21:36 Sodium Chloride 0.9% 10 Ml Flush Syringe IV 10 ml BID JUAN F Administration Sodium Chloride 10 ml 12/14/20 02:43 12/16/20 05:37 Sodium Chloride 0.9% 10 Ml Flush Syringe IV 10 ml PRN PRN Administration LINE FLUSH Nutrition/Malnutrition Assess - Dietary Evaluation Nutrition/Malnutrition Findings: Nutrition Notes Start: 12/14/20 11:32 Freq: Status: Active Protocol: Document 12/14/20 11:32 (Rec: 12/14/20 11:35 [email or web address]) Nutrition Notes Need for Assessment generated from: MD Order,Education Initial or Follow up Brief Note Current Diagnosis Diabetes Other Pertinent Diagnosis Cardiac, Consistent CHO Current Diet syncope Labs/Tests BP 163/135 Subjective/Other Information MD order for diet education. Pt reports he stopped taking BP medication because he didn' t feel like taking it. Pt given low Na diet education. #1 Nutrition Diagnosis Food and nutrition-related knowledge deficit Etiology no prior diet education As Evidenced by Signs and Symptoms pt had questions about low Na foods Nutrition Intervention Teaching Recipient Patient Learning Readiness Good Teaching Methods Discussion,Handout Response to Teaching Verbalize understanding Education Handouts Provided Low Na Nutrition Therapy Barriers to Learning No Barriers RD phone number provided Yes Patient aware of follow up options Yes Revisit per MD consult or patient Sign Off request:
--- NOTE | 2020-12-16 11:11 | Electrocardiograph Report ---
[facility] Test Date: 2020-12-14 Test Time: 02:27:57 Pat Name: KRYSTYNA VERGARA Department: Room: A473 1 Gender: M Capital Equipment Specialist: CRISTAL : 1940 Requested By: VA VERGARA Order Number: [id number] Reading MD: Elijah Iraheta Measurements Intervals [place] Rate: 76 P: 0 MA: 160 QRS: -7 QRSD: 96 T: 32 QT: 403 QTc: 455 Interpretive Statements Sinus rhythm No previous ECG available for comparison Electronically Signed On 12-16-2020 11:10:48 EDT by Elijah Iraheta
--- NOTE | 2020-12-16 13:48 | Vascular Lab Report ---
DUPLEX DOPPLER ULTRASOUND CAROTID, BILATERAL INDICATION / CLINICAL INFORMATION: syncope. COMPARISON: None available. FINDINGS: RIGHT CAROTID: Moderate plaque in the carotid bifurcation and proximal ICA - PLAQUE ESTIMATE (%): < 50% - CCA velocity: 103 cm/sec. - ICA peak systolic velocity: 87 cm/sec. - ICA/CCA PSV Ratio: 0.8 Right Vertebral Artery: Antegrade flow. LEFT CAROTID: Mild plaque - PLAQUE ESTIMATE: < 50% - CCA velocity: 58 cm/sec. - ICA peak systolic velocity: 85 cm/sec. - ICA/CCA PSV Ratio: 1.46 Left Vertebral Artery: Antegrade flow. IMPRESSION: 1. Right Internal Carotid Artery: Less than 50% diameter stenosis. 2. Left Internal Carotid Artery: Less than 50% diameter stenosis. Bilateral carotid artery plaque. Velocity criteria are extrapolated from diameter data as defined by the Society of Radiologists in Ul trasound Consensus Conference, Radiology 2003; 229;340-346. NO STENOSIS (NORMAL) * Plaque = none; ICA PSV < 125 cm/sec; ICA/CCA PSV Ratio < 2.0 <50% STENOSIS * Plaque < 50%; ICA PSV < 125 cm/sec; ICA/CCA PSV Ratio < 2.0 50-69% STENOSIS * Plaque > 50%; ICA PSV = 125-230 cm/sec; ICA/CCA PSV Ratio = 2.0-4.0 >70% BUT <100% STENOSIS * Plaque > 50%; ICA PSV > 230 cm/sec; ICA/CCA PSV Ratio > 4.0 NEAR OCCLUSION * Plaque = visible lumen; ICA PSV = high/low/none; ICA/CCA PSV Ratio = variable TOTAL OCCLUSION * Plaque = no lumen; ICA PSV = none; ICA/CCA PSV Ratio = N/A Signer Name: Marcelo Melendez MD Signed: 12/16/2020 1:43 PM Workstation Name: [id number]
[2020-12-16] MEDS: LOSARTAN 25 MG TAB PO SCH (14:26)
[2020-12-17] MEDS: HEPARIN 5,000 UNIT/1 ML VIAL SUB-Q SCH ×4 (05:31→21:29)
[2020-12-17] MEDS: hydrALAZINE 20 MG/1 ML INJ IV SCH ×7 (05:34→22:24)
[2020-12-17] MEDS: INSULIN REGULAR, HUMAN 100 UNITS/1 ML SUB-Q SCH ×3 (07:30→18:42)
[2020-12-17] MEDS: LOSARTAN 25 MG TAB PO SCH (09:13)
--- NOTE | 2020-12-17 11:17 | Progress Note ---
Assessment and Plan - Patient Problems (1) Syncope Current Visit: Yes Status: Acute Plan to address problem: Patient presented with transient syncope, 2 days following neck and head surgery. Probably vasodepressive reaction. CTA of the chest was negative for pulmonary embolism. Normal LVEF by echo. No significant stenosis by carotid doppler. Inpatient cardiac work-up so far negative. As outpatient, we will recommend 30- day event monitor. Subjective Date of service: 12/17/20 Interval history: No arrhythmias seen on telemetry thus far. Patient denies chest pain, denies palpitations, and denies unusual shortness of breath. Objective Vital Signs Temp Pulse Resp BP Pulse Ox 12/17/20 09:13 71 150/57 12/17/20 07:40 97.8 F 71 18 150/57 94 12/17/20 05:36 80 144/70 12/17/20 03:26 97.5 F L 80 17 144/70 97 12/16/20 23:22 98.7 F 75 17 114/44 97 12/16/20 22:25 18 12/16/20 22:00 75 18 98 12/16/20 19:15 99.2 F 80 16 117/52 94 12/16/20 17:15 84 123/52 12/16/20 16:56 98.6 F 84 18 123/52 96 12/16/20 14:27 81 130/70 12/16/20 14:26 81 130/70 12/16/20 11:54 98.1 F 81 18 135/58 97 - Physical Examination General: No Apparent Distress HEENT: Positive: PERRL, Other (Extensive surgical sutures left side of face) Neck: Positive: neck supple Cardiac: Positive: Reg Rate and Rhythm Lungs: Positive: Decreased Breath Sounds Neuro: Positive: Grossly Intact Extremities: Absent: edema
--- NOTE | 2020-12-17 14:09 | Discharge Summary ---
Providers - Providers Date of Admission: 12/14/20 02:38 Date of discharge: 12/18/20 Attending physician: JAE DUKE 12/14/20 02:43 Consult to Dietitian/Nutrition [CONS] Routine Physician Instructions: Reason For Exam: Reason for Consult: Diet education 12/14/20 10:17 Consult to Physician [CONS] Routine Comment: Consulting Provider: RADHA ASHER Physician Instructions: Reason For Exam: syncope 12/14/20 19:05 Consult to Wound/ET Nurse [CONS] Routine Reason For Exam: wound eval 12/15/20 14:25 Physical Therapy Evaluation and Treat [CONS] Routine Comment: Reason For Exam: weakness/dizzy [facility] Condition: Fair Hospital course: 80-year-old male with known history of diabetes mellitus, history of [place] in the past with stent placement presentED in the emergency room with complaint of multiple syncopal episodes. Initial episode was about a week ago when he was working down the street and was lightheaded and was having palpitations. He did not seek any medical attention at that time. He however has been having multiple syncopal episodes since then and also had one upon arrival in the emergency room. Patient has had surgery for facial cancer at the [facility] in the RECENT past and still has surgical tasha in place. Work-up in the emergency room showed leukocytosis of 11.9. CT angiogram of the chest was negative, CT of the head shows chronic changes of atrophy and small vessel ischemia. CT of the face/neck was also negative. Normal LVEF by echo. No significant stenosis by carotid doppler. Patient was further evaluated by physical therapy recommended . Patient will be discharged today with home health PT OT. Disposition: DC-01 TO HOME OR SELFCARE Final Discharge Diagnosis (Prints w/discharge instructions): Recurrent syncope, likely vasovagal- plan for 30 days event monitor. Hypertension. Type 2 diabetes. Obesity class I. History of facial cancer status post surgery. Time spent for discharge: 34 minutes Core Measure Documentation - Palliative Care Palliative Care/ Comfort Measures: Not Applicable - Core Measures Any of the following diagnoses?: history only Exam - Physical Exam Narrative exam: VITAL SIGNS: Reviewed. GENERAL: Awake HEAD: No signs of head trauma. EYES: Pupils are equal. Extraocular motions intact. MOUTH: Oropharynx is normal. NECK: No adenopathy, no JVD. Surgical tasha on the left neck CHEST: Chest with diminished breath sounds bilaterally. No wheezes, rales, or rhonchi. CARDIAC: normal S1 and S2, without murmurs, gallops, or rubs. ABDOMEN: Soft, non tender and non distended. No rebound or guarding, and no masses palpated. Bowel Sounds normal. MUSCULOSKELETAL: No edema NEUROLOGIC EXAM: Alert and oriented x3. No focal neurologic deficits SKIN: No obvious lesions - Constitutional Vitals: Temp Pulse Resp BP Pulse Ox 97.8 F 71 18 140/57 94 12/17/20 07:40 12/17/20 10:00 12/17/20 07:40 12/17/20 09:13 12/17/20 10:00 Plan Activity: advance as tolerated Weight Bearing Status: Weight Bear as Tolerated Diet: low fat, low salt, diabetic Wound: per your surgeon's advice Special Instructions: record daily BP diary, physical therapy, home health RN Additional Instructions: Follow-up at CT for staple removal from the surgical area by tomorrow. Follow-up with booster pump oiler at the CT for 30 days event monitoring. Follow up with: ROBY HARRIS MD [Primary Care Provider] - 3-5 Days Prescriptions: Meclizine [Antivert] 12.5 mg PO Q8H PRN #14 tablet PRN Reason: Vertigo Losartan [Cozaar] 50 mg PO QDAY #30 tablet
[2020-12-18] MEDS: hydrALAZINE 20 MG/1 ML INJ IV SCH ×5 (03:35→10:18)
[2020-12-18] MEDS: INSULIN REGULAR, HUMAN 100 UNITS/1 ML SUB-Q SCH ×2 (05:32→10:35)
[2020-12-18] MEDS: HEPARIN 5,000 UNIT/1 ML VIAL SUB-Q SCH (05:46)
[2020-12-18 09:47] VITALS: BP 156/70
[2020-12-18] MEDS: LOSARTAN 25 MG TAB PO SCH (10:21)
--- NOTE | 2020-12-18 10:58 | Progress Note ---
Assessment and Plan - Patient Problems (1) Syncope Current Visit: Yes Status: Acute Plan to address problem: Patient presented with transient syncope, 2 days following neck and head surgery. Probably vasodepressive reaction. CTA of the chest was negative for pulmonary embolism. Normal LVEF by echo. No significant stenosis by carotid doppler. Conservative cardiac managment. As outpatient, we will recommend 30-day event monitor. Subjective Date of service: 12/18/20 Interval history: No arrhythmias seen on telemetry thus far. Discharge planning is in process. Objective Vital Signs Temp Pulse Resp BP Pulse Ox 12/18/20 10:21 66 12/18/20 10:18 66 12/18/20 09:20 98.3 F 80 18 156/70 94 12/18/20 05:48 75 148/66 12/18/20 03:41 98.0 F 75 16 148/66 96 12/17/20 23:19 98.8 F 80 16 120/49 99 12/17/20 19:35 98.6 F 80 14 116/33 98 12/17/20 16:59 98.3 F 83 18 135/62 86 - Physical Examination General: No Apparent Distress HEENT: Positive: PERRL, Other (Extensive surgical sutures left side of face) Neck: Positive: neck supple Cardiac: Positive: Reg Rate and Rhythm Lungs: Positive: Decreased Breath Sounds Neuro: Positive: Grossly Intact Extremities: Absent: edema
--- NOTE | 2020-12-18 14:35 | Progress Note ---
Assessment and Plan #Syncope - likely vasovagal Cardiology note reviewed Echocardiogram - normal EF Plan for 30 days event monitor Orthostatic vitals are fair PT pending HTN: Fair Type 2 Diabetes cont. ISS coverage Recent extensive head and neck surgery for unknown cancer Follow up with surgery, oncology after discharge Obesity class 1 Diet and exercise advised. DVT - heparin Disposition -PT recommended home health. He will need to follow up with cardiology for 30 day event monitor Brief history: 80-year-old male with known history of diabetes mellitus, history of [place] in the past with stent placement presenting in the emergency room with complaint of multiple syncopal episodes. Patient has had surgery for facial cancer at the [facility] in the [facility]. Work-up in the emergency room showed patient had a leukocytosis of 11.9. CT angiogram of the chest was negative, CT of the head shows chronic changes of atrophy and small vessel ischemia. CT of the face/neck was also negative. He was admitted for further evaluation and management. 12/15 patient is resting with eyes closed. oriented x 3. cardiology note reviewed. Discussed with RN . He was complaining of dizzy during orthostatic measurements. will request PT eval. possible discharge tomorrow 12/16. Patient still complains of dizziness. PT has been ordered. He has a history of head and neck cancer status post surgery. 12/17: PT cleared for discharge but patient states that he is homeless and no place to go. CM consulted for placement. Subjective Date of service: 12/17/20 Interval history: Patient seen and examined. Medical records and medication list reviewed. No acute event overnight noted by the RN. Patient denies any chest pain or difficulty breathing. Patient is tolerating diet. Discussed plan of care at bedside with patient. Patient states that he is homeless and no place to go Objective - Exam Narrative Exam: VITAL SIGNS: Reviewed. GENERAL: Awake HEAD: No signs of head trauma. EYES: Pupils are equal. Extraocular motions intact. MOUTH: Oropharynx is normal. NECK: No adenopathy, no JVD. Surgical tasha on the left neck CHEST: Chest with diminished breath sounds bilaterally. No wheezes, rales, or rhonchi. CARDIAC: normal S1 and S2, without murmurs, gallops, or rubs. ABDOMEN: Soft, non tender and non distended. No rebound or guarding, and no masses palpated. Bowel Sounds normal. MUSCULOSKELETAL: No edema NEUROLOGIC EXAM: Alert and oriented x3. No focal neurologic deficits SKIN: No obvious lesions - Constitutional Vitals: Vital Signs - 12hr 12/18/20 12/18/20 12/18/20 03:41 05:48 09:20 Temperature 98.0 F 98.3 F Pulse Rate 75 75 80 Respiratory 16 18 Rate Blood Pressure 148/66 148/66 156/70 O2 Sat by Pulse 96 94 Oximetry 12/18/20 12/18/20 10:18 10:21 Temperature Pulse Rate 66 66 Respiratory Rate Blood Pressure O2 Sat by Pulse Oximetry - Labs CBC & Chem 7: 12/15/20 04:51 12/15/20 04:51 Labs: Abnormal lab results 12/17/20 12/17/20 Range/Units 16:48 20:27 POC Glucose 111 H 149 H (70-105) mg/dL HEART Score - HEART Score Troponin: Troponin T 0.011 ng/mL (0.00-0.029) 12/13/20 19:49
== END 2020-12-18 15:36 | disposition home health service (06) | DRG 312 ==
LOC: ED 19:10 → 4A 12-14 02:38
PROVIDERS: ADMIT Internal Medicine Geriatric Medicine; ATTEND Internal Medicine
DX: R55 Syncope and collapse (principal); I25.2 Old myocardial infarction; E11.9 Type 2 diabetes mellitus without complications; Z87.891 Personal history of nicotine dependence; Z95.5 Presence of coronary angioplasty implant and graft; I10 Essential (primary) hypertension; Z79.4 Long term (current) use of insulin; E66.9 Obesity, unspecified; D72.829 Elevated white blood cell count, unspecified; Z68.32 Body mass index [BMI] 32.0-32.9, adult; Z85.89 Personal history of malignant neoplasm of other organs and systems
CPT/HCPCS: 36415; 70450; 70486; 71275; 80048; 80053; 82962; 84484; 85025; 85027; 85610; 87040; 93005; 93306; 93880; 96365; G0378; J0360; J0690; J1644; J1815; Q9967

== ENCOUNTER 2020-12-20 00:53 | Observation (INO) | payer OTHER, MEDICARE ==
[2020-12-20] MEDS ORDERED: ASPIRIN 325 MG TAB PO ONE (02:23)
[2020-12-20 02:54] LABS: Basophils # (Auto) 0.1 K/mm3 (0.0-0.1); Basophils % (Auto) 0.7 % (0.0-1.8); Eosinophils # (Auto) 0.2 K/mm3 (0.0-0.4); Eosinophils % (Auto) 1.6 % (0.0-4.3); Hemoglobin 12.2 gm/dl (11.8-15.2); Lymphocytes # (Auto) 1.7 K/mm3 (1.2-5.4); Lymphocytes % (Auto) 14.7 % (13.4-35.0); Mean Corpuscular HGB Conc 33 % (32-34); Mean Corpuscular Volume 84 fl (84-94); Monocytes # (Auto) 1.2 K/mm3 (0.0-0.8); Monocytes % (Auto) 10.7 % (0.0-7.3); Platelet Count 262 K/mm3 (140-440); Red Blood Count 4.39 M/mm3 (3.65-5.03); Red Cell Distribution Width 16.1 % (13.2-15.2)
--- NOTE | 2020-12-20 02:58 | XRay Report ---
CHEST 2 VIEWS INDICATION: chestpain. COMPARISON: None. FINDINGS: Support devices: None. Heart: Within normal limits. Lungs/Pleura: Mild increased interstitial markings diffusely. No significant pleural effusion. IMPRESSION: Mild increased interstitial markings diffusely. Signer Name: Phillip Calles MD Signed: 12/20/2020 2:54 AM Workstation Name: [id number]
[2020-12-20 03:21] LABS: Albumin 3.7 g/dL (3.9-5)
--- NOTE | 2020-12-20 03:38 | Emergency Department Report ---
ED Chest Pain HPI - General Chief Complaint: Chest Pain Stated Complaint: CHEST PAIN PUI?: No Time Seen by Provider: 12/20/20 03:14 Source: patient Mode of arrival: Stretcher Limitations: No Limitations - History of Present Illness Initial Comments: Patient is a 80-year-old male who presents emergency room with complaints of neel st pain. Patient states he also had a syncopal episode. Patient states she had chest pain syncope at the same time at approximately 5 hours ago. Patient states the single episode was a one-time incident. Patient states the chest pain is continuous. Patient states the chest pain is better with rest and worse with exertion. Patient denies shortness of breath. Patient denies fever and chills. Patient denies cough. Patient denies recent travel. Patient denies recent international travel. Patient denies exposure to the novel coronavirus. Patient denies sick contacts. Patient denies fever and chills. Patient denies cough. Patient denies diarrhea. Patient denies coming in contact with anybody with symptoms of the novel coronavirus. MD Complaint: chest pain -: Sudden Onset: during rest Pain Location: substernal, left chest Pain Radiation: none Severity scale (0 -10): 4 Quality: sharp Consistency: constant Improves With: rest Worsens With: exertion re: dyspnea, other. denies: nausea, vomting, diaphoresis Other Symptoms: denies: cough, fever, syncope, rash, acid taste in mouth, leg swelling, palpitations, burping Treatments Prior to Arrival: aspirin Aspirin use within the Past 7 Days: (1) Yes - Related Data On Oral Contraceptives: No Previous Rx's Medication Instructions Recorded Last Taken Type Losartan [Cozaar] 50 mg PO QDAY #30 tablet 12/17/20 Unknown Rx Meclizine [Antivert] 12.5 mg PO Q8H PRN #14 tablet 12/17/20 Unknown Rx Allergies Allergy/AdvReac Type Severity Reaction Status Date / Time No Known Allergies Allergy Verified 08/14/19 22:32 Heart Score - HEART Score History: Moderately suspicious EKG: Non-specific Age: > 65 Risk factors: > 3 risk factors or hx of atherosclerotic disease Troponin: < normal limit HEART Score: 6 - EKG Read Time Time EKG Completed: 02:26 EKG Read Time: 02:28 ED Review of Systems ROS: Stated complaint: CHEST PAIN Other details as noted in HPI Constitutional: denies: chills, fever Eyes: denies: eye pain, eye discharge, vision change ENT: denies: ear pain, throat pain Respiratory: denies: cough, shortness of breath, wheezing Cardiovascular: chest pain. denies: palpitations Endocrine: no symptoms reported Gastrointestinal: denies: abdominal pain, nausea, diarrhea Genitourinary: denies: urgency, dysuria Musculoskeletal: denies: back pain, joint swelling, arthralgia Skin: denies: rash, lesions Neurological: as per HPI. denies: headache, weakness, paresthesias Psychiatric: denies: anxiety, depression Hematological/Lymphatic: denies: easy bleeding, easy bruising ED Past Medical Hx - Past Medical History Previous Medical History?: Yes Hx Heart Attack/AMI: Yes Hx Diabetes: Yes Additional medical history: Cancer - Surgical History Past Surgical History?: Yes Hx Coronary Stent: Yes Additional Surgical History: left face, jaw and neck cancer removed - Family History Family history: no significant - Social History Smoking Status: Never Smoker Substance Use Type: None - Medications Home Medications: Home Medications Medication Instructions Recorded Confirmed Last Taken Type Losartan [Cozaar] 50 mg PO QDAY #30 tablet 12/17/20 Unknown Rx Meclizine [Antivert] 12.5 mg PO Q8H PRN #14 tablet 12/17/20 Unknown Rx ED Physical Exam - General Limitations: No Limitations General appearance: alert, in no apparent distress - Head Head exam: Present: atraumatic, normocephalic - Eye Eye exam: Present: normal appearance - ENT ENT exam: Present: mucous membranes moist - Neck Neck exam: Present: normal inspection - Respiratory Respiratory exam: Present: normal lung sounds bilaterally. Absent: respiratory distress, wheezes, rales - Cardiovascular Cardiovascular Exam: Present: regular rate, normal rhythm. Absent: systolic murmur, diastolic murmur, rubs, gallop - GI/Abdominal GI/Abdominal exam: Present: soft, normal bowel sounds - Rectal Rectal exam: Present: deferred - Extremities Exam Extremities exam: Present: normal inspection - Back Exam Back exam: Present: normal inspection - Neurological Exam Neurological exam: Present: alert, oriented X3 - Psychiatric Psychiatric exam: Present: normal affect, normal mood - Skin Skin exam: Present: warm, dry, intact, normal color. Absent: rash ED Course Vital Signs 12/20/20 03:28 Respiratory 18 Rate - Reevaluation(s) Reevaluation #1: I discussed all results with patient. I discussed plan of care with patient. Patient agrees with plan of care and admission. Patient to be admitted to the hospitalist service. 12/20/20 03:54 - Consultations Consultation #1: Hospitalist consulted for admission. Hospitalist to admit patient. 12/20/20 03:54 LETY score - Lety Score Age > 65: (1) Yes Aspirin use within the Past 7 Days: (1) Yes 3 or more CAD Risk Factors: (1) Yes 2 or more Angina events in past 24 hrs: (1) Yes Known CAD with more than 50% Stenosis: (0) No Elevated Cardiac Markers: (0) No ST Deviation Greater than 0.5mm: (0) No LETY Score: 4 ED Medical Decision Making - Lab Data Result diagrams: 12/20/20 02:37 12/20/20 02:37 - EKG Data -: EKG Interpreted by Me EKG shows normal: sinus rhythm, axis, intervals, QRS complexes, ST-T waves Rate: normal - Radiology Data Radiology results: report reviewed, image reviewed interpreted by me: Chest x-ray: No pneumonia, no pneumothorax, no foreign body, no osseous findings, no acute findings CHEST 2 VIEWS INDICATION: chestpain. COMPARISON: None. FINDINGS: Support devices: None. Heart: Within normal limits. Lungs/Pleura: Mild increased interstitial markings diffusely. No significant pleural effusion. IMPRESSION: Mild increased interstitial markings diffusely. - Medical Decision Making Patient is a 80-year-old male who presents emergency room with complaints of chest pain and syncope. Patient had labs done which were essentially unremarkable save for renal failure and renal insufficiency. Patient's troponin was negative. Patient's syncopal episode was x1. Patient's neurologic exam is intact. Patient had an EKG which was negative for findings. Patient's ST s egment was normal. Patient had a chest x-ray which was negative for acute findings. I personally reviewed the EKG and the chest x-ray. Patient admitted to the hospital service for further evaluation treatment. Critical care time documented due to the multiple reassessments, prolonged time at the bedside, interpretation of diagnostics and labs. - Differential Diagnosis Chest pain, ACS, syncope, Critical Care Time: Yes Critical care time in (mins) excluding proc time.: 35 Critical care attestation.: If time is entered above; I have spent that time in minutes in the direct care of this critically ill patient, excluding procedure time. Critical Care Time: 35 minutes ED Disposition Clinical Impression: Syncope Qualifiers: Syncope type: unspecified Qualified Code(s): R55 - Syncope and collapse Chest pain Qualifiers: Chest pain type: unspecified Qualified Code(s): R07.9 - Chest pain, unspecified Renal failure Qualifiers: Renal failure chronicity: acute Acute renal failure type: unspecified Qualified Code(s): N17.9 - Acute kidney failure, unspecified Disposition: DC-09 OP ADMIT IP TO THIS HOSP Is pt being admited?: Yes Does the pt Need Aspirin: No Condition: Critical Instructions: Syncope (ED) Time of Disposition: 03:54
[2020-12-20] MEDS ORDERED: hydrALAZINE 20 MG/1 ML INJ IV PRN (05:13)
--- NOTE | 2020-12-20 05:47 | History and Physical Report ---
History of Present Illness Date of examination: 12/20/20 Date of admission: 12/20/20 03:54 Chief complaint: chest pain History of present illness: Patient is a 80-year-old male who presents emergency room with complaints of chest pain. Patient states he also had a syncopal episode. Patient states she had chest pain syncope at the same time at approximately 5 hours ago. Patient states the single episode was a one-time incident. Patient states the chest pain is continuous. Patient states the chest pain is better with rest and worse with exertion. Patient denies shortness of breath. Patient denies fever and chills. Patient denies cough. ED work-up shows WBC with mild elevation 11.4, hemoglobin 12.2, platelets 262, sodium 139, potassium 4.4, creatinine 1.4, serum glucose 116, serum 9.0. Checks x-ray done shows mild increased interstitial markings diffusely but no significant pleural effusion. Patient seen at the bedside in the ED. Patient alert and oriented x3. Patient reported that he came due to chest pain with episode of syncope. He said his symptoms started about 5 hours before he came to the emergency room and is now getting better. Patient has a history of neck surgery due to cancer in the neck with incision intact no drainage noted. I reviewed patient medication record medical record and vital signs. Patient has history of high blood pressure, hyperlipidemia, and diabetes. Will resume home medication. Patient denies tobacco use, chronic alcohol use, and illicit drug use. Past History Past Medical History: diabetes, heart failure, hypertension, hyperlipidemia Past Surgical History: Other (left face, jaw and neck cancer removed) Social history: no significant social history Family history: no significant family history Medications and Allergies Allergies Allergy/AdvReac Type Severity Reaction Status Date / Time No Known Allergies Allergy Verified 08/14/19 22:32 Home Medications Medication Instructions Recorded Confirmed Last Taken Type Losartan [Cozaar] 50 mg PO QDAY #30 tablet 12/17/20 Unknown Rx Meclizine [Antivert] 12.5 mg PO Q8H PRN #14 tablet 12/17/20 Unknown Rx Active Meds: Active Medications Hydralazine HCl (Hydralazine 20 Mg/1 Ml Inj) 5 mg IV Q4H PRN PRN Reason: hypertention Last Admin: 12/20/20 05:22 Dose: 5 mg Documented by: Review of Systems Constitutional: weakness Ears, nose, mouth and throat: no epistaxis, no bleeding gums Cardiovascular: chest pain Respiratory: no hemoptysis Gastrointestinal: no melena Rectal: no hemorrhoids Musculoskeletal: muscle weakness Neurological: no head injury, no confusion Psychiatric: no suicidal ideation, no disorientation Hematologic/Lymphatic: no easy bruising, no easy bleeding Allergic/Immunologic: no urticaria Exam - Constitutional Vitals: Temp Pulse Resp BP Pulse Ox 97.9 F 79 17 192/90 98 12/20/20 02:19 12/20/20 05:22 12/20/20 04:51 12/20/20 05:22 12/20/20 04:51 General appearance: Present: mild distress, obese - EENT Eyes: Present: PERRL ENT: hearing intact, clear oral mucosa - Neck Neck: Present: supple, normal ROM - Respiratory Respiratory effort: normal Respiratory: bilateral: CTA - Cardiovascular Heart rate: 79 Heart Sounds: Present: S1 & S2. Absent: rub, click - Extremities Extremities: pulses symmetrical, No edema Peripheral Pulses: within normal limits - Abdominal General gastrointestinal: Present: soft, non-tender, non-distended, normal bowel sounds Male genitourinary: Present: normal - Integumentary Integumentary: Present: clear, warm, dry - Musculoskeletal Musculoskeletal: gait normal, strength equal bilaterally - Psychiatric Psychiatric: appropriate mood/affect, intact judgment & insight, cooperative - Neurologic Neurologic: CNII-XII intact, moves all extremities - Allied Health Allied health notes reviewed: nursing HEART Score - HEART Score EKG: Non-specific Age: > 65 Risk factors: > 3 risk factors or hx of atherosclerotic disease Troponin: Troponin T 0.012 ng/mL (0.00-0.029) 12/20/20 02:37 Troponin: < normal limit Results - Labs CBC & Chem 7: 12/20/20 02:37 12/20/20 02:37 Labs: Abnormal lab results 12/20/20 12/20/20 Range/Units 02:37 02:37 WBC 11.4 H (4.5-11.0) K/mm3 RDW 16.1 H (13.2-15.2) % [place] % (Auto) 10.7 H (0.0-7.3) % [place] # (Auto) 1.2 H (0.0-0.8) K/mm3 Seg Neutrophils % 72.3 H (40.0-70.0) % Seg Neutrophils # 8.2 H (1.8-7.7) K/mm3 BUN 22 H (9-20) mg/dL Creatinine 1.4 H (0.8-1.3) mg/dL Glucose 116 H (75-100) mg/dL Albumin 3.7 L (3.9-5) g/dL Assessment and Plan - Patient Problems (1) Chest pain Current Visit: Yes Status: Acute Qualifiers: Chest pain type: unspecified Qualified Code(s): R07.9 - Chest pain, unspecified Plan to address problem: Continue cardioprotective measure Aspirin, statin, oxygen supplements as needed Echocardiogram and scanning coordinator consult. (2) Hypertension Current Visit: No Status: Acute Plan to address problem: Monitor blood pressure Continue antihypertensive Adjust if needed and as needed hydralazine (3) Syncope Current Visit: Yes Status: Acute Qualifiers: Syncope type: unspecified Qualified Code(s): R55 - Syncope and collapse Plan to address problem: Questionable cause Echo ordered and scanning coordinator consulted (4) Diabetes mellitus Current Visit: No Status: Acute Plan to address problem: Monitor blood sugar with sliding scale Check hemoglobin A1c (5) Acute kidney injury Current Visit: Yes Status: Acute Plan to address problem: Monitor kidney function Avoid nephrotoxic drugs including nonsteroidal anti-inflammatory agents/contrast dye We will consult golf course keeper if needed. 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 cause likely reactive. Patient has no evidence of sepsis. Urinalysis ordered (7) DVT prophylaxis Current Visit: No Status: Acute Plan to address problem: heparin
[2020-12-20] MEDS ORDERED: ALUM-MAG HYDROXIDE-SIMETHICONE 200-200-20MG/5ML ORAL LIQD 30 ML PO PRN (05:50)
[2020-12-20] MEDS ORDERED: ONDANSETRON 4 MG/2 ML INJ IV PRN (05:50)
[2020-12-20] MEDS ORDERED: METOCLOPRAMIDE 10 MG/2 ML INJ IV PRN (05:50)
[2020-12-20] MEDS ORDERED: MAGNESIUM HYDROXIDE (MOM) ORAL LIQD UDC PO PRN (05:50)
[2020-12-20] MEDS ORDERED: ACETAMINOPHEN 325 MG TAB PO PRN ×2 (05:50)
[2020-12-20] MEDS ORDERED: SENNOSIDES 8.6 MG TAB PO PRN (05:50)
[2020-12-20] MEDS ORDERED: NITROGLYCERIN 0.4 MG TAB SUBL SL PRN (05:50)
[2020-12-20] MEDS ORDERED: traMADol 50 MG TAB PO PRN ×2 (05:50→06:00)
[2020-12-20] MEDS ORDERED: traZODone 50 MG TAB PO PRN (06:00)
[2020-12-20 09:53] VITALS: BP 148/70
[2020-12-20] MEDS ORDERED: FAMOTIDINE 20 MG/2 ML INJ IV SCH (10:00)
[2020-12-20] MEDS ORDERED: ENOXAPARIN 40 MG/0.4 ML INJ SUB-Q SCH (10:00)
[2020-12-20] MEDS ORDERED: HEPARIN 5,000 UNIT/1 ML VIAL SUB-Q SCH (10:00)
[2020-12-20] MEDS ORDERED: carvediloL 3.125 MG TAB PO SCH (10:00)
[2020-12-20] MEDS ORDERED: PANTOPRAZOLE 40 MG TAB PO SCH (10:00)
[2020-12-20] MEDS ORDERED: LOSARTAN 50 MG TAB PO SCH (10:00)
--- NOTE | 2020-12-20 10:01 | Consultation ---
History of Present Illness Consult date: 12/20/20 Consult reason: syncope History of present illness: This is a 80-year old M who was hospitalized 5 days ago with syncope. Workup with a CTA of the chest was negative for pulmonary embolism. Echocardiogram shows normal left ventricular systolic function. No significant stenosis by carotid doppler. Patient was discharge home with recommendations for outpatient 30 day event monitor. Patient returns to this hospital, admitted with recurrent syncope. Syncope is poorly characterized. He denies palpitations, chest pain, and shortness of breath. Noted with bloody drainage from extensive surgery on the left side of the face for an undisclosed cancer. Surgery was done a week ago at the [facility] An ECG done is normal sinus rhythm. No acute ST or T wave changes. No ventricular arrhythmias seen on telemetry. Patient has a history of single vessel coronary artery disease and underwent angioplasty and stenting of the first diagonal branch using BMS. Before his current surgery, he states that he had preoperative cardiac evaluation including a pharmacologic stress test and possibly an echocardiogram. Past History Past Medical History: CAD, diabetes, hypertension, hyperlipidemia Past Surgical History: Other (left face, jaw and neck cancer removed) Social history: no significant social history Family history: no significant family history Medications and Allergies Allergies Allergy/AdvReac Type Severity Reaction Status Date / Time No Known Allergies Allergy Verified 08/14/19 22:32 Home Medications Medication Instructions Recorded Confirmed Last Taken Type Meclizine [Antivert] 12.5 mg PO Q8H PRN #14 tablet 12/17/20 Unknown Rx Amlodipine Besylate [Norvasc] 5 mg PO DAILY #30 tablet 12/20/20 Unknown Rx Aspirin [Aspirin BABY CHEW TAB] 81 mg PO QDAY #30 tab.chew 12/20/20 Unknown Rx AtorvaSTATin [Lipitor] 40 mg PO QHS #30 tablet 12/20/20 Unknown Rx Pantoprazole [Protonix TAB] 40 mg PO QDAY #30 tablet 12/20/20 Unknown Rx carvediloL [Coreg] 3.125 mg PO BID #60 tablet 12/20/20 Unknown Rx Active Meds: Active Medications Acetaminophen (Acetaminophen 325 Mg Tab) 650 mg PO Q4H PRN PRN Reason: Pain MILD(1-3)/Fever >100.5/SHEN Al Hydrox/Mg Hydrox/Simethicone (Alum-Mag Hydroxide-Simethicone [id number]/5ml Oral Liqd 30 Ml) 30 ml PO Q4H PRN PRN Reason: Indigestion Aspirin (Aspirin 81 Mg Tab Chew) 81 mg PO QDAY [facility] Atorvastatin Calcium (Atorvastatin 40 Mg Tab) 40 mg PO QHS [facility] Carvedilol (Carvedilol 3.125 Mg Tab) 3.125 mg PO BID [facility] Last Admin: 12/20/20 09:52 Dose: 3.125 mg Documented by: Heparin Sodium (Porcine) (Heparin 5,000 Unit/1 Ml Vial) 5,000 unit SUB-Q Q12HR [facility] Last Admin: 12/20/20 09:48 Dose: 5,000 unit Documented by: Hydralazine HCl (Hydralazine 20 Mg/1 Ml Inj) 5 mg IV Q4H PRN PRN Reason: hypertention Last Admin: 12/20/20 05:22 Dose: 5 mg Documented by: Losartan Potassium (Losartan 50 Mg Tab) 50 mg PO QDAY [facility] Last Admin: 12/20/20 09:51 Dose: 50 mg Documented by: Magnesium Hydroxide (Magnesium Hydroxide (Mom) Oral Liqd Udc) 30 ml PO Q4H PRN PRN Reason: Constipation Metoclopramide HCl (Metoclopramide 10 Mg/2 Ml Inj) 10 mg IV Q6H PRN PRN Reason: Nausea And Vomiting Nitroglycerin (Nitroglycerin 0.4 Mg Tab Subl) 0.4 mg SL Q5M PRN PRN Reason: Chest Pain Ondansetron HCl (Ondansetron 4 Mg/2 Ml Inj) 4 mg IV Q8H PRN PRN Reason: Nausea And Vomiting Pantoprazole Sodium (Pantoprazole 40 Mg Tab) 40 mg PO QDAY [facility] Last Admin: 12/20/20 09:48 Dose: 40 mg Documented by: Senna (Sennosides 8.6 Mg Tab) 8.6 mg PO Q12HR PRN PRN Reason: Constipation Sodium Chloride (Sodium Chloride 0.9% 10 Ml Flush Syringe) 10 ml IV BID [facility] Last Admin: 12/20/20 09:52 Dose: 10 ml Documented by: Sodium Chloride (Sodium Chloride 0.9% 10 Ml Flush Syringe) 10 ml IV PRN PRN PRN Reason: LINE FLUSH Tramadol HCl (Tramadol 50 Mg Tab) 50 mg PO Q4H PRN PRN Reason: Pain, Moderate (4-6) Trazodone HCl (Trazodone 50 Mg Tab) 50 mg PO QHS PRN PRN Reason: Anaphylaxis Physical Examination Vital Signs Temp Pulse Resp BP Pulse Ox 97.9 F 93 H 20 188/101 96 12/20/20 02:12/20/20 02:19 12/20/20 02:19 12/20/20 02:12/20/20 02:19 General appearance: no acute distress HEENT: Positive: PERRL Neck: Positive: Other (Extensive surgical sutures left side of face) Cardiac: Positive: Reg Rate and Rhythm Lungs: Positive: Decreased Breath Sounds Neuro: Positive: Grossly Intact Extremities: Absent: edema Results 12/20/20 02:37 12/20/20 02:37 Cardiac Enzymes 12/20/20 Range/Units 02:37 AST 20 (5-40) units/L CBC 12/20/20 Range/Units 02:37 WBC 11.4 H (4.5-11.0) K/mm3 RBC 4.39 (3.65-5.03) M/mm3 Hgb 12.2 (11.8-15.2) gm/dl Hct 37.0 (35.5-45.6) % Plt Count 262 (140-440) K/mm3 Lymph # (Auto) 1.7 (1.2-5.4) K/mm3 [place] # (Auto) 1.2 H (0.0-0.8) K/mm3 Eos # (Auto) 0.2 (0.0-0.4) K/mm3 Baso # (Auto) 0.1 (0.0-0.1) K/mm3 Comprehensive Metabolic Panel 12/20/20 Range/Units 02:37 Sodium 139 (137-145) mmol/L Potassium 4.4 (3.6-5.0) mmol/L Chloride 102.7 (98-107) mmol/L Carbon Dioxide 25 (22-30) mmol/L BUN 22 H (9-20) mg/dL Creatinine 1.4 H (0.8-1.3) mg/dL Glucose 116 H (75-100) mg/dL Calcium 9.0 (8.4-10.2) mg/dL AST 20 (5-40) units/L ALT 13 (7-56) units/L Alkaline Phosphatase 124 (35-129) units/L Total Protein 7.0 (6.3-8.2) g/dL Albumin 3.7 L (3.9-5) g/dL Assessment and Plan - Patient Problems (1) Syncope Current Visit: Yes Status: Acute Qualifiers: Qualified Code(s): R55 - Syncope and collapse Plan to address problem: Patient presented with recurrent syncope Recent CTA of the chest was negative for pulmonary embolism. Normal LVEF by echo. No significant stenosis by carotid doppler. Conservative cardiac management. As outpatient, we will recommend 30-day event monitor.
--- NOTE | 2020-12-20 10:12 | Event Note ---
Date: 12/20/20 This is the second visit after midnight Vitals noted and stable Patient seen and examined This is a 80-year-old white male who is apparently homeless was discharged couple days ago from the hospital after evaluation of chest pain and syncope All work-up was negative and patient was recommended partial care at home on discharge which he refused Patient was then discharged to [facility] [place] [facility], he now comes back with same complaints Cardiology has been consulted, will follow recommendation Creatinine slightly elevated with 1.4, will continue IV fluid hydration Also consults insulator tester for placement issue Continue current management and plan as dictated in the HPI
[2020-12-20] MEDS ORDERED: SODIUM CHLORIDE 0.9% 1000 ML 500 ML IV ONE (10:13)
--- NOTE | 2020-12-20 10:23 | Discharge Summary ---
Providers - Providers Date of Admission: 12/20/20 03:54 Date of discharge: 12/20/20 Attending physician: JAE DUKE 12/20/20 Consult to Cardiac Rehabilitation [CONS] Routine Reason For Exam: Phase I 12/20/20 06:53 Consult to Cardiology [CONS] Stat Consulting Provider: RADHA ASHER Reason For Exam: Chest pain 12/20/20 10:14 Physical Therapy Evaluation and Treat [CONS] Routine Comment: Reason For Exam: Debility Primary care physician: OPERATIONS SUPERVISOR 2ND SHIFT Hospitalization Condition: Good Pertinent studies: Chest x-ray: Increased interstitial markings. Hospital course: This is a 80-year-old white male who is apparently homeless was discharged couple days ago from the hospital after evaluation of chest pain and syncope All work-up was negative and patient was recommended partial care at home on discharge which he refused Patient was then discharged to [facility], he now comes back with same complaints. Patient was noted to have elevated BP, antihypertensives were initiated and his blood pressure was stable. He denied any chest pain or difficulty breathing. He was saturating greater than 94% in room air even though chest x-ray showed slight increase in interstitial markings. Cardiology has been consulted and recommended 30 days outpatient event monitor and no further work-up from cardiac standpoint. Creatinine noted slightly elevated with 1.4, patient was given IV fluid hydration and creatinine improved to 1.2. Physical therapy was consulted and recommended no skilled PT needed. CT head ordered and in my review there is no intracranial bleed (official reading was pending) Patient was planned for discharge with home health once placement is confirmed. Discharge plan and management was thoroughly discussed with the patient and he verbalized understanding. Disposition: DC-01 TO HOME OR SELFCARE Final Discharge Diagnosis (Prints w/discharge instructions): Atypical Chest pain from GERD. Reported Syncope -likely vasovagal. HTN, uncontrolled. h/o facial cancer Time spent for discharge: 40 minutes Core Measure Documentation - Palliative Care Palliative Care/ Comfort Measures: Not Applicable - Core Measures Any of the following diagnoses?: none Exam - Physical Exam Narrative exam: General appearance: Present: mild distress, obese - EENT Eyes: Present: PERRL ENT: hearing intact, clear oral mucosa - Neck Neck: Present: supple, normal ROM, surgical suture brina on the left side of the face along with the angle of jaw and left side of the neck. - Respiratory Respiratory effort: normal Respiratory: bilateral: CTA - Cardiovascular Heart rate: 79 Heart Sounds: Present: S1 & S2. Absent: rub, click - Extremities Extremities: pulses symmetrical, No edema Peripheral Pulses: within normal limits - Abdominal General gastrointestinal: Present: soft, non-tender, non-distended, normal bowel sounds Male genitourinary: Present: normal - Integumentary Integumentary: Present: clear, warm, dry - Musculoskeletal Musculoskeletal: gait normal, strength equal bilaterally - Psychiatric Psychiatric: appropriate mood/affect, intact judgment & insight, cooperative - Neurologic Neurologic: CNII-XII intact, moves all extremities - Constitutional Vitals: Temp Pulse Resp BP Pulse Ox 97.9 F 83 17 148/70 98 12/20/20 02:19 12/20/20 09:52 12/20/20 04:51 12/20/20 09:52 12/20/20 04:51 Plan Activity: advance as tolerated Weight Bearing Status: Weight Bear as Tolerated Diet: low fat, low salt Durable Medical Equipment Needed Upon Discharge: Walker-Rolling Additional Instructions: 30 days event monitor as outpt. Follow-up at [facility] as outpatient Follow up with: PRIMARY CARE, [Primary Care Provider] - 7 Days Prescriptions: AtorvaSTATin [Lipitor] 40 mg PO QHS #30 tablet Aspirin [Aspirin BABY CHEW TAB] 81 mg PO QDAY #30 tab.chew carvediloL [Coreg] 3.125 mg PO BID #60 tablet Amlodipine Besylate [Norvasc] 5 mg PO DAILY #30 tablet Pantoprazole [Protonix TAB] 40 mg PO QDAY #30 tablet
[2020-12-20] MEDS ORDERED: amLODIPine 10 MG TAB PO SCH (11:00)
--- NOTE | 2020-12-20 15:54 | Cat Scan Report ---
CT head/brain wo con INDICATION: syncope. TECHNIQUE: Routine CT head. All CT scans at this location are performed using CT dose reduction for A SIRIA by means of automated exposure control. COMPARISON: CT head December 2020 FINDINGS: Intracranial: The sella is expanded by soft tissue measuring 1.9 cm in craniocaudal dimension with de hiscence of the underlying sphenoid wall. The pituitary gland is not visualized separately from the s oft tissue (best seen on images 30-1933 of series 602) Moore-white matter differentiation is maintaine d. No intracranial hemorrhage. No extra axial collection. No hydrocephalus. No herniation. Periventri cular and centrum semiovale T2 white matter hyperintensities most consistent with sequela of chronic microvascular disease. Sinuses: Paranasal sinuses and mastoid air cells are essentially clear. Orbits: Globes are intact. Calvarium: No acute fracture. IMPRESSION: 1. Nonspecific lesion expands the sella. Recommend dedicated MRI pituitary gland for further characte rization. 2. No acute abnormality. Signer Name: Keith Young MD Signed: 12/20/2020 3:50 PM Workstation Name: [id number]
[2020-12-21] MEDS ORDERED: ASPIRIN 81 MG TAB CHEW PO SCH (10:00)
--- NOTE | 2020-12-23 14:24 | Event Note ---
Date: 12/22/20 Patient was discharged on 12/20/20. His CT head result was read after he was discharged. CT head 12/20/20 SHOWED Nonspecific lesion expands the sella, Recommended dedicated MRI pituitary gland for further characterization. I initially ordered the CT head to r/o any traumatic brain hemorrhage which was absent on my assessment so he was discharged when official reading of the CT head was pending. Noted that his prior CT head on prior admission 12/14/20 read as normal. I reevaluated his latest CT head results with the radiologist today and he reconfirmed that patient does have chronic appearing sellar lesion and will benefit from MRI brain with pituitary section. I called patient number: [id number] that is listed in the chart but unable to reach out to him as number seems to be disconnected. I called patient's son/ELBA Smith, @ [phone] but unable to reach out to him and left a voice message. I discussed recent finding with director of casework Ms. Harley and she will call [facility] about this finding to arrange a outpatient brain MRI with pituitary section for the patient. I also requested Ms. Harley to send the CT scan result via fax to [facility] to facilitate outpatient follow-up.
--- NOTE | 2020-12-24 17:27 | Electrocardiograph Report ---
[facility] [place] Test Date: 2020-12-20 Test Time: 02:26:44 Pat Name: KRYSTYNA VERGARA Department: Room: A491 1 Gender: M Billing Specialist: EDDI : 1940 Requested By: PJ FERRARA III Order Number: [id number] Reading MD: Monserrat Cameron Measurements Intervals [place] Rate: 81 P: NE: QRS: -23 QRSD: 89 T: 79 QT: 384 QTc: 447 Interpretive Statements Normal sinus rhythm Left ventricular hypertrophy Nonspecific repol abnormality, lateral leads Compared to ECG 12/14/2020 02:27:57 Electronically Signed On 12-24-2020 17:27:33 EDT by Monserrat Cameron
--- NOTE | 2020-12-24 17:29 | Electrocardiograph Report ---
[facility] Test Date: 2020-12-20 Test Time: 07:06:00 Pat Name: KRYSTYNA VERGARA Department: Room: A491 1 Gender: M Hyperbaric Nurse: SHANTHI : 1940 Requested By: JAMIL HAMPTON Order Number: [id number] Reading MD: Monserrat Cameron Measurements Intervals [place] Rate: 83 P: -3 ND: 168 QRS: -23 QRSD: 88 T: 65 QT: 388 QTc: 456 Interpretive Statements Sinus rhythm Compared to ECG 12/14/2020 02:27:57 No significant changes Electronically Signed On 12-24-2020 17:29:01 EDT by Monserrat Cameron
--- NOTE | 2020-12-24 17:31 | Electrocardiograph Report ---
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
== END 2020-12-20 15:58 | disposition home or self-care (01) ==
LOC: ED 00:53 → 4A 03:54
PROVIDERS: ADMIT Internal Medicine Geriatric Medicine; ATTEND Internal Medicine
DX: R07.89 Other chest pain (principal); I11.0 Hypertensive heart disease with heart failure; I50.9 Heart failure, unspecified; E11.9 Type 2 diabetes mellitus without complications; R55 Syncope and collapse; N17.9 Acute kidney failure, unspecified; K21.9 Gastro-esophageal reflux disease without esophagitis; M25.50 Pain in unspecified joint; E78.5 Hyperlipidemia, unspecified; R53.1 Weakness; D72.829 Elevated white blood cell count, unspecified; Z79.899 Other long term (current) drug therapy; Z98.890 Other specified postprocedural states; Z95.1 Presence of aortocoronary bypass graft
CPT/HCPCS: 36415; 70450; 71046; 80053; 82565; 84484; 85025; 93005; 96372; 96374; 97161; 99291; G0378; J0360; J1644